=== PATIENT | female | born 1970 | race African-American/Black ===

== ENCOUNTER 2016-12-30 06:09 | Emergency (ER) | payer SELFPAY ==
[2016-12-30] MEDS ORDERED: NORFLEX INJ IM ONE (06:24)
[2016-12-30] MEDS ORDERED: TORADOL 60 MG VIAL IM ONE (06:24)
--- NOTE | 2016-12-30 06:26 | DR.GENAD ---
HPI - PCP Primary Care Physician: lenin - HPI Comment HPI Comment: AT WORK YESTERDAY. LIFTED AND LOWER BACK PAIN STATED. BACK WENT INTO SPASM. DENIES WEAKNESS BUT HAVE SEVERE PAIN. ALIVE DIID NOT HELP PAIN. - Complaint/Symptoms Chief Complaint Doctors Comments: LOWER BACK PAIN SINCE YESTERDAY. Chief Complaint:: pulled back at work - Nurses notes reviewed Nurses Notes Review: Yes - Source History Provided: Patient - Mode of Arrival Mode of Arrival: Ambulatory - Timing Onset of Chief Complaint: 12/30/16 Came on: Suddenly - Duration Duration: Constant Duration: Hours - Severity Severity: Moderate PMH - PMH Past Medical History: Yes Past Medical History: Hypertension Past Surgical History: Yes Surgical History: Hysterectomy - Family History History of Family Medical Conditions: Yes Family Medical History: Diabetes Mellitus, Cancer, Hypertension - Social History Does patient currently use any type of tobacco product: No Have you used tobacco products in the last 12 months: No Type of Tobacco Use: None Does any household member use tobacco: No Alcohol Use: None Do you use any recreational Drugs:: No Lives With: Family Lives Where: Home - infectious screening In the last 2 months have you had wt loss of >10#?: NO Have you had fever, night sweats or hemotysis?: No Have you traveled outside the country in the last 6 months?: No Isolation: Standard ROS - Review of Systems Constitutional: No Symptoms Reported Eyes: No Symptoms Reported ENTM: No Symptoms Reported Respiratoy: No Symptoms Reported Cardiovascular: No Symptoms Reported Gastrointestinal/Abdominal: No Symptoms Reported Genitourinary: No Symptoms Reported Neurological: No Symptoms Reported Musculoskeletal: Back Pain, Muscle Pain Integumentary: No Symptoms Reported Hematologic/Lymphatic: No Symptoms Reported Endocrine: No Symptoms Reported All Other Systems: Reviewed and Negative PE - Vital Signs Vitals: Temperature 98.2 F Pulse Rate 65 Respiratory Rate 18 Blood Pressure 192/110 O2 Sat by Pulse Oximetry 98 - General Limitations: No Limitations General Appearance: Alert - Head Head Exam: Normal Inspection - Eyes Eye exam: Normal Appearance - ENT ENT Exam: Normal External Ear Exam External Ear Exam: Normal External Inspection Throat Exam: Normal Inspection - Neck Neck Exam: Trachea Midline - Chest Chest Inspection: Symmetric Chest Wall Rise - Respiratory Respiratory Exam: Normal Lung Sounds Bilat Respiratory Exam: Bilateral Clear to Auscultation - Cardiovascular Cardiovascular Exam: Regular Rate, Normal Rhythm, Normal Heart Sounds - Abdominal Exam Abdominal Exam: Normal Bowel Sounds, Soft. negative: Tenderness - Extremities Extremities Exam: Normal Inspection - Back Back Exam: Paraspinal Tenderness (LOWER BACK.), Vertebral Tenderness (LOWER BACK.) - Neurologic Neurological Exam: Alert, Oriented X3 - Psychiatric Psychiatric Exam: Anxious - Skin Skin Exam: Normal Color MDM - Additional Information Additional Information Obtained From: Family - Differential Diagnosis Differential Diagnosis: LOWER BACK PAIN, STRAIN, SPRAIN, FRACTURE AND CONTUSION Course - Treatment Treatment: SEE ORDERS. - Education/Counseling Education/Counseling: Patient, Education Educated On: Treatment, Diagnosis, Needs for Follow Up ROR - XRAY XRAY Interpreted by: Radiologist XRAY Findings: REPORT DISCUSS WITH PATIENT. - Diagnosis Discharge Problem: Back muscle spasm Lumbar back pain Qualifiers: Chronicity: acute Back pain laterality: unspecified Sciatica presence: without sciatica Qualified Code(s): M54.5 - Low back pain - Discharge Plan Condition: Stable Prescriptions: Cyclobenzaprine HCl [FLEXERIL 10 MG *] 10 mg PO TID PRN #20 tab PRN Reason: Ibuprofen [MOTRIN TAB 600 MG *] 600 mg PO TID PRN #20 tab PRN Reason: Pain/Inflammation Tramadol HCl 50 mg PO TID PRN #15 tablet PRN Reason: - Follow ups/Referrals Follow ups/Referrals: SIRISHA ORTIZ [Primary Care Provider] - 2 days - Instructions Instructions: Back Pain, Adult, [id number] Additional Instructions: RETURN TO ED IF WORSE.
[2016-12-30 06:27] VITALS: BP 192/110; BMI 51.2
[2016-12-30] MEDS ORDERED: NORFLEX INJ ONE (06:29)
[2016-12-30] MEDS ORDERED: TORADOL 60 MG VIAL ONE (06:29)
[2016-12-30] MEDS ORDERED: DUONEB 0.5 MG/3 MG ONE (06:47)
--- NOTE | 2016-12-30 06:59 | RAD ---
Three views of the lumbar spine Indication: Lower back pain the after pulling injury. Findings: There is mild multilevel spondylosis of the lumbar spine with. No fracture or spondylolist hesis. No spondylolysis. SI joints are intact. There is also moderate spondylosis within the visuali zed lower thoracic spine. Impression: Mild multilevel spondylosis of the lumbar spine without acute fracture or spondylolisthe sis. Reported By:
== END 2016-12-30 08:15 | disposition home or self-care (01) ==
LOC: ER 06:09
DX: M62.830 Muscle spasm of back (principal); M54.5 Low back pain; M47.816 Spondylosis without myelopathy or radiculopathy, lumbar region; Y93.89 Activity, other specified; Y92.69 Other specified industrial and construction area as the place of occurrence of the external cause
CPT/HCPCS: 72100; 80305; 96372; 99283; J1885; J2360; J7620

== ENCOUNTER 2017-01-05 12:57 | Emergency (ER) | payer SELFPAY ==
--- NOTE | 2017-01-05 13:15 | DR.CP ---
HPI - Time Seen Time seen: 13:15 - PCP Primary Care Physician: DIANA - HPI Comment HPI Comment: PATIENT DEVELOP INTERMITTENT SUBSTERNAL SHARP CHEST PAIN GOING TO HER BACK THAT STARTED AT 10:00 AM TODAY. APIN ALSO ASSOCIATED WITH WEAKNESS AND FATIGUE. NO FEVER OR URI SYMTOMS. - Complaint Chief Complaint Doctor Comments: CHEST PAIN Chief Complaint:: PT C/O CHEST PAIN THAT STARTED AT 1000 Self Treatment fo Chief Complaint: MOTRIN , FLEXERIL - Reviewed Nurses Notes Review: Yes - Source History Provided: Patient - Mode of Arrival Mode of Arrival: Ambulatory - Timing Onset of Chief Complaint: 01/05/17 Came on: Gradually Pain: Present Now - Duration Duration: Intermittent Duration: Hours - Location Location of Chest Pain: Chest (SUBSTERNAL CHEST PAIN) Chest Pain Radiation Location: Back - Context Onset: At rest, With light exertion Cardiac Risk Factors: HTN PE Risk Factors: None History of: None Prehospital Care: None - Quality Quality: Sharp - Severity Severity: Moderate - Modifying Factors Worsens: Nothing Impoves: Nothing - Associated Signs and Symptoms Associated Signs and Symptoms: Shortness of Breath PMH - PMH Past Medical History: Yes Past Medical History: Hypertension Past Surgical History: Yes Surgical History: Hysterectomy - Family History History of Family Medical Conditions: Yes Family Medical History: Diabetes Mellitus, Cancer, Hypertension - Social History Does patient currently use any type of tobacco product: No Have you used tobacco products in the last 12 months: No Type of Tobacco Use: None Does any household member use tobacco: No Alcohol Use: None Do you use any recreational Drugs:: No Lives With: Family Lives Where: Home - infectious screening In the last 2 months have you had wt loss of >10#?: NO Have you had fever, night sweats or hemotysis?: No Have you traveled outside the country in the last 6 months?: No Isolation: Standard ROS - Review of Systems Constitutional: Weakness, Fatigue. negative: Chills, Fever, Loss of Appetite Eyes: No Symptoms Reported. negative: Eye Pain, Discharge ENTM: No Symptoms Reported. negative: Ear Pain, Nose Discharge, Nose Congestion , Throat Pain Respiratoy: Short of Breath. negative: Productive Cough, Non-Productive Cough, Wheezing, Hemoptysis Cardiovascular: Chest Pain. negative: Edema, Palpitations Gastrointestinal/Abdominal: Nausea. negative: Abdominal Pain, Constipation, Diarrhea, Vomiting Genitourinary: No Symptoms Reported. negative: Dysuria, Frequency, Hematuria Neurological: Headache, Weakness, Dizziness Musculoskeletal: Muscle Pain Integumentary: No Symptoms Reported Hematologic/Lymphatic: No Symptoms Reported Endocrine: No Symptoms Reported All Other Systems: Reviewed and Negative PE - Vitals Vitals: Temperature 98.3 F Pulse Rate 69 Respiratory Rate 20 Blood Pressure 154/92 O2 Sat by Pulse Oximetry 100 - General Limitations: No Limitations General Appearance: Alert - Head Head Exam: Normal Inspection - Eyes Eye exam: Normal Appearance - ENT ENT Exam: Normal External Ear Exam - Chest Chest Inspection: Symmetric Chest Wall Rise - Respiratory Respiratory Exam: Normal Lung Sounds Bilat Respiratory Exam: Bilateral Clear to Auscultation - Cardiovascular Cardiovascular Exam: Regular Rate, Normal Rhythm, Normal Heart Sounds Pulse: Normal, Radial, Femoral Edema: Normal - Abdominal Exam Abdominal Exam: Normal Bowel Sounds, Soft. negative: Tenderness - Extremities Extremities Exam: Normal Inspection - Back Back Exam: Normal Inspection - Neurologic Neurological Exam: Alert, Oriented X3, CN II-XII Intact, Normal Gait, Reflexes Normal. negative: Motor Sensory Deficit - Psychiatric Psychiatric Exam: Anxious - Skin Skin Exam: Normal Color MDM - Differential Diagnosis Differential Diagnosis: Chest Wall Pain, Costochondritis, Esophageal Reflux/ Spasm, Gastritis, Myocardial Infarction, Pericarditis, Pancreatitis, Pneumonia, Pneumothorax, Pulmonary Embolus Course - Treatment Treatment: SEE ODERS. - Education/Counseling Education/Counseling: Patient, Education Educated On: Diagnosis ROR - Labs Reviewed Laboratory Results Reviewed?: Yes Result Diagrams: 01/05/17 13:17 01/05/17 13:17 Laboratory: WBC 5.9 X10^3/uL (3.6-10.0) 01/05/17 13:17 RBC 4.53 X10^6/uL (3.5-5.4) 01/05/17 13:17 Hgb 12.5 g/dL (12.0-16.0) 01/05/17 13:17 Hct 38.1 % (36.0-47.0) 01/05/17 13:17 MCV 84.0 fL (80.0-100.0) 01/05/17 13:17 MCH 27.6 pg (27.0-34.0) 01/05/17 13:17 MCHC 32.9 g/dL (33.0-35.0) L 01/05/17 13:17 RDW 15.2 % (11.6-16.5) 01/05/17 13:17 Plt Count 134 X10^3/uL (150.0-450.0) L 01/05/17 13:17 MPV 9.4 fL (7.4-11.0) 01/05/17 13:17 Neut % 29.7 % (42.0-75.0) L 01/05/17 13:17 Lymph % 59.4 % (21.0-51.0) H 01/05/17 13:17 [place] % 6.2 % (0.0-13.0) 01/05/17 13:17 Eos % 3.5 % (0.9-2.9) H 01/05/17 13:17 Baso % 1.2 % (0.2-1.0) H 01/05/17 13:17 Neut # 1.8 x10^3/uL (2.2-4.8) L 01/05/17 13:17 Lymph # 3.5 X10^3/uL (1.3-2.9) H 01/05/17 13:17 [place] # 0.4 x10^3/uL (0.3-0.8) 01/05/17 13:17 Eos # 0.2 x10^3/uL (0.0-0.2) 01/05/17 13:17 Baso # 0.1 X10^3/uL (0.0-0.1) 01/05/17 13:17 Absolute Nucleated RBC 0.1 /100WBC 01/05/17 13:17 INR Target Range - 01/05/17 13:17 INR 0.97 (0.8-1.3) 01/05/17 13:17 PTT 32.9 SECONDS (22.9-36.5) 01/05/17 13:17 PTT Comment - 01/05/17 13:17 D-Dimer 343 ng/mL (0-400) 01/05/17 13:17 Sodium 137 mmol/L (136-145) 01/05/17 13:17 Corrected Sodium TNP 01/05/17 13:17 Potassium 3.9 mmol/L (3.5-5.1) 01/05/17 13:17 Chloride 101 mmol/L (98-107) 01/05/17 13:17 Carbon Dioxide 31.5 mmol/L (21-32) 01/05/17 13:17 BUN 11 mg/dL (7-18) 01/05/17 13:17 Creatinine 0.93 mg/dL (0.55-1.02) 01/05/17 13:17 Est GFR (MDRD) Af Amer > 60 (>60) 01/05/17 13:17 Est GFR (MDRD) Non-Af > 60 (>60) 01/05/17 13:17 Glucose 84 mg/dL (65-99) 01/05/17 13:17 Calcium 8.3 mg/dL (8.5-10.1) L 01/05/17 13:17 Corrected Calcium TNP 01/05/17 13:17 Magnesium 1.7 mg/dL (1.7-2.9) 01/05/17 13:17 Total Bilirubin 0.20 mg/dL (0.2-1.0) 01/05/17 13:17 AST 30 Units/L (15-37) 01/05/17 13:17 ALT 32 Units/L (12-78) 01/05/17 13:17 Alkaline Phosphatase 79 Units/L (46-116) 01/05/17 13:17 Creatine Kinase 402 Units/L (26-192) H 01/05/17 13:17 CK-MB (CK-2) 2.6 ng/mL (0-4.0) 01/05/17 13:17 CK/CKMB % Calc 0.7 % (<4) 01/05/17 13:17 Troponin I 0.11 ng/mL (0-1.5) 01/05/17 13:17 Total Protein 7.5 g/dL (6.4-8.2) 01/05/17 13:17 Albumin 3.5 g/dL (3.4-5.0) 01/05/17 13:17 Globulin 4.0 g/dL (2.5-4.5) 01/05/17 13:17 Albumin/Globulin Ratio 0.9 Ratio (1.1-2.1) L 01/05/17 13:17 H. pylori IgG Antibody Negative (NEGATIVE) 01/05/17 13:17 - XRAY XRAY Findings: REPORT DISCUSS WITH PATIENT. - EKG Rhythm: NSR (EKG NOTED) - Diagnosis Discharge Problem: Chest pain Qualifiers: Chest pain type: other chest pain Qualified Code(s): R07.89 - Other chest pain ; R07.8 - Other chest pain - Discharge Plan Condition: Stable Prescriptions: Ketorolac Tromethamine [Toradol Tab] 10 mg PO Q8H PRN #15 tab PRN Reason: Pain Ranitidine HCl [ZANTAC TAB 150 MG *] 150 mg PO BID #60 tab - Follow ups/Referrals Follow ups/Referrals: SIRISHA ORTIZ [Primary Care Provider] - 3 days - Instructions Instructions: Chest Pain Observation Additional Instructions: RETURN TO ED IF WORSE.
[2017-01-05 13:29] LABS: BASOPHILS # (AUTO) 0.1 X10^3/uL (0.0-0.1); BASOPHILS % (AUTO) 1.2 % (0.2-1.0); EOSINOPHILS # (AUTO) 0.2 x10^3/uL (0.0-0.2); EOSINOPHILS % (AUTO) 3.5 % (0.9-2.9); HEMATOCRIT 38.1 % (36.0-47.0); HEMOGLOBIN 12.5 g/dL (12.0-16.0); LYMPHOCYTES # (AUTO) 3.5 X10^3/uL (1.3-2.9); LYMPHOCYTES % (AUTO) 59.4 % (21.0-51.0); MEAN CORPUSCULAR HEMOGLOBIN 27.6 pg (27.0-34.0); MEAN CORPUSCULAR HGB CONC 32.9 g/dL (33.0-35.0); MEAN PLATELET VOLUME 9.4 fL (7.4-11.0); MONOCYTES # (AUTO) 0.4 x10^3/uL (0.3-0.8); MONOCYTES % (AUTO) 6.2 % (0.0-13.0); NEUTROPHILS # (AUTO) 1.8 x10^3/uL (2.2-4.8); NEUTROPHILS % (AUTO) 29.7 % (42.0-75.0); PLATELET COUNT 134 X10^3/uL (150.0-450.0); RED BLOOD COUNT 4.53 X10^6/uL (3.5-5.4); RED CELL DISTRIBUTION WIDTH 15.2 % (11.6-16.5); WHITE BLOOD COUNT 5.9 X10^3/uL (3.6-10.0)
--- NOTE | 2017-01-05 13:33 | RAD ---
HISTORY: Chest pain Study: AP portable chest Comparison: None Findings: The trachea is midline. The cardiac silhouette is enlarged. No congestive heart failure is noted.. The lungs are clear without focal infiltrate or effusion. The bony thorax is unremarkable. IMPRESSION: 1. Cardiomegaly without congestive heart failure 2. Lungs clear Reported By:
[2017-01-05 13:55] LABS: D DIMER 343 ng/mL (0-400)
[2017-01-05 14:09] LABS: ALANINE AMINOTRANSFERASE 32 Units/L (12-78); ALBUMIN 3.5 g/dL (3.4-5.0); ALKALINE PHOSPHATASE 79 Units/L (46-116); ASPARTATE AMINO TRANSFERASE 30 Units/L (15-37); BLOOD UREA NITROGEN 11 mg/dL (7-18); CALCIUM 8.3 mg/dL (8.5-10.1); CARBON DIOXIDE 31.5 mmol/L (21-32); CHLORIDE 101 mmol/L (98-107); CKMB % 0.7 % (<4); CREATINE KINASE 402 Units/L (26-192); CREATINE KINASE MB 2.6 ng/mL (0-4.0); CREATININE 0.93 mg/dL (0.55-1.02); GLUCOSE 84 mg/dL (65-99); MAGNESIUM 1.7 mg/dL (1.7-2.9); SODIUM 137 mmol/L (136-145); TOTAL PROTEIN 7.5 g/dL (6.4-8.2); TROPONIN I 0.11 ng/mL (0-1.5); eGFR BLACK RACES > 60 (>60); eGFR NON BLACK RACES > 60 (>60)
[2017-01-05] MEDS ORDERED: PEPCID 20 MG IV PREMIX* 20 MG/50 ML BAG IV ONE ×2 (14:10→14:32)
[2017-01-05] MEDS ORDERED: CATAPRES TAB 0.2 MG PO ONE (14:21)
[2017-01-05] MEDS ORDERED: CATAPRES TAB 0.2 MG ONE (14:32)
[2017-01-05] MEDS ORDERED: NORVASC TAB 5 MG ONE (15:36)
[2017-01-05] MEDS ORDERED: NORVASC TAB 10 MG PO ONE (15:41)
[2017-01-05] MEDS ORDERED: ATIVAN INJ 2 MG VIAL ONE (16:51)
[2017-01-05] MEDS ORDERED: ATIVAN INJ 2 MG VIAL IVP ONE (16:53)
[2017-01-05 17:41] VITALS: BP 189/88
== END 2017-01-05 17:42 | disposition home or self-care (01) ==
LOC: ER 13:11
DX: R07.89 Other chest pain (principal)
CPT/HCPCS: 36415; 71010; 80053; 82550; 82553; 83735; 84484; 85025; 85378; 85610; 85730; 86677; 93005; 93010; 96365; 96374; 96375; 99283; A4222; S0028; J2060

== ENCOUNTER 2017-09-26 15:28 | Observation (INO) | payer SELFPAY ==
[2017-09-26] MEDS ORDERED: MORPHINE SULFATE INJ 2 MG INJ IVP ONE (16:09)
[2017-09-26] MEDS ORDERED: MORPHINE SULFATE INJ 2 MG INJ ONE (16:14)
--- NOTE | 2017-09-26 16:16 | DR.GENAD ---
HPI - PCP Primary Care Physician: DIANA - Complaint/Symptoms Chief Complaint Doctors Comments: Patient is complaining of frontal headache for the pasta 11 hours getting worst after people came to the house and begin "messing with her" getting her up set. States she has had a cough with greenish sputum and vomiting with diarrhea. She denies blurred vision, neck pain, chest or abdominal pain. she denies dysuria, hematuria, melena or any recent trauma. States her pain is 9 of 10 and it is the worst headache of her life. States she is a patient of Dr. Ortiz and has two hypertensive medicines that she takes and she took them after her called EMS earlier and they told her her blood pressure was elevated. States she has been having nasal congestion and problems with her sinus but denies sore throat. Chief Complaint:: PT. STATES SHE HAS NOT FELT GOOD IN ABOUT A WEEK. PT. C/O BODY CRAMPING AND SEVERE HEADACHE. PT. STATES THIS MORNING SHE BEGAN HAVING N/V/ D. - Nurses notes reviewed Nurses Notes Review: Yes - Source History Provided: Patient - Mode of Arrival Mode of Arrival: Ambulatory - Timing Onset of Chief Complaint: 09/21/17 Came on: Gradually - Duration Duration: Constant How lon Duration: Hours - Location Location: diffuse frontal headache - Severity Severity: Severe - Modifying Factors Worsens:: nothing Improves:: nothing PMH - PMH Past Medical History: Yes Past Medical History: Hypertension Past Surgical History: Yes Surgical History: Hysterectomy - Family History History of Family Medical Conditions: Yes Family Medical History: Diabetes Mellitus, Cancer, Hypertension - Social History Does patient currently use any type of tobacco product: No Have you used tobacco products in the last 12 months: No Type of Tobacco Use: None Does any household member use tobacco: No Alcohol Use: None Do you use any recreational Drugs:: No Lives With: Spouse Lives Where: Home - infectious screening In the last 2 months have you had wt loss of >10#?: NO Have you had fever, night sweats or hemotysis?: No Have you traveled outside the country in the last 6 months?: No Isolation: Standard ROS - Review of Systems Constitutional: No Symptoms Reported. negative: See HPI, Chills, Diaphoresis, Fever, Malaise, Weakness, Irritable, Fatigue, Loss of Appetite, Other Eyes: No Symptoms Reported. negative: See HPI, Eye Pain, Blurred Vision, Tearing, Discharge, Photophobia, Diplopia, Other ENTM: No Symptoms Reported, Nose Discharge, Nose Congestion. negative: See HPI , Ear Pain, Ear Discharge, Pulling on Ears, Hearing Loss, Nose Pain, Epistaxis, Mouth Pain, Mouth Swelling, Loose Teeth, Drooling, Throat Pain, Throat Swelling , Ear Foreign Body Respiratoy: No Symptoms Reported, Productive Cough. negative: See HPI, Non- Productive Cough, Moist Cough, Dry Cough, Hacking Cough, Barking Cough, Brassy Cough, Orthopnea, Short of Breath, Stridor, Wheezing, Hemoptysis, Other Cardiovascular: No Symptoms Reported. negative: See HPI, Chest Pain, Edema, Palpitations, Syncope, Cyanosis, Skin Mottling, Other Gastrointestinal/Abdominal: No Symptoms Reported, Diarrhea, Nausea, Vomiting. negative: See HPI, Abdominal Pain, Constipation, Food Intolerance, Other Genitourinary: No Symptoms Reported. negative: See HPI, Discharge, Dysuria, Frequency, Hematuria, Pain, Bleeding, Other Neurological: No Symptoms Reported, Anxiety, Emotional Problems, Headache. negative: See HPI, Depressed, Numbness, Paresthesia, Pre-existing Deficit, Seizure, Tingling, Tremors, Weakness, Dizziness, Problems Walking, Speech Problem, Other Musculoskeletal: No Symptoms Reported Integumentary: No Symptoms Reported Hematologic/Lymphatic: No Symptoms Reported Endocrine: No Symptoms Reported Psychiatric: No Symptoms Reported. negative: See HPI, Anxiety, Depression, Hallucinations, Excessive crying, Suicidal, Other PE - Vital Signs Vitals: Temperature 100.6 F Pulse Rate 98 Respiratory Rate 22 Blood Pressure [Left Arm] 189/88 Blood Pressure 148/88 O2 Sat by Pulse Oximetry 96 - General Limitations: No Limitations General Appearance: Alert, In Distress (moderate), Obese - Head Head Exam: Normal Inspection, Atraumatic, Normocephalic - Eyes Eye exam: Normal Appearance, PERRL, EOMI. negative: Scleral Icterus, Conjunctival Injection, Nystagmus, Miosis, Mydrasis, Periorbital Swelling, Periorbital Tenderness, Other - ENT ENT Exam: Normal Exam, Normal Oropharynx, Normal External Ear Exam, Mucous Membranes Moist, TM's Normal Bilaterally External Ear Exam: Normal External Inspection TM/Canal Exam: Bilateral Normal Nose Exam: Normal Nose Exam (nasal congestion, edematous mucosal). negative: Sinus Tenderness, Nasal Deviation, Crepitus, Septal Hematoma, Laceration, Abrasion, Other Mouth Exam: Normal Inspection Throat Exam: Normal Inspection. negative: Tonsillar Erythema, Tonsillomegaly, Tonsillar Exudate, R Peritonsillar Mass, L Peritonsillar Mass, Muffled Voice, Other - Neck Neck Exam: Normal Inspection, Full ROM, Trachea Midline. negative: Tenderness, Meningismus, Lymphadenopathy, Thyromegaly, Other - Chest Chest Inspection: Normal Inspection, Symmetric Chest Wall Rise - Respiratory Respiratory Exam: Normal Lung Sounds Bilat Respiratory Exam: Bilateral Clear to Auscultation - Cardiovascular Cardiovascular Exam: Regular Rate, Normal Rhythm, Normal Heart Sounds - Abdominal Exam Abdominal Exam: Normal Inspection, Normal Bowel Sounds, Soft Abdominal Tenderness: negative: RUQ, RLQ, LUQ, LLQ, Epigastrium, Suprapubic, Diffuse, Mild, Moderate, Severe, Other - Extremities Extremities Exam: Normal Inspection, Full ROM, Normal Capillary Refill. negative: Tenderness, Edema, Joint Swelling, Calf Tenderness, Other - Back Back Exam: Normal Inspection, Full ROM - Neurologic Neurological Exam: Alert, Oriented X3, CN II-XII Intact, Reflexes Normal. negative: Normal Gait (gait not tested) - Psychiatric Psychiatric Exam: Normal Affect, Normal Mood, Agitated, Anxious. negative: Depressed, Flat Affect, Manic, Homicidal Ideation, Suicidal Ideation, Other - Skin Skin Exam: Warm, Dry, Intact, Normal Color Course - Reevaluation 1st: Improved - Consultation Called: 18:08 Call Returned: 18:08 (Dr. Gonzalez to admit) - Education/Counseling Education/Counseling: Patient, Family Educated On: Treatment, Diagnosis, Needs for Follow Up ROR - Labs Reviewed Laboratory Results Reviewed?: Yes (All labs and x-ray results reviewed and discussed with patient and spouse) Result Diagrams: 09/26/17 16:25 09/26/17 16:25 Laboratory: WBC 10.5 X10^3/uL (3.6-10.0) H 09/26/17 16:25 RBC 4.33 X10^6/uL (3.5-5.4) 09/26/17 16:25 Hgb 12.1 g/dL (12.0-16.0) 09/26/17 16:25 Hct 36.0 % (36.0-47.0) 09/26/17 16:25 MCV 83.1 fL (80.0-100.0) 09/26/17 16:25 MCH 27.8 pg (27.0-34.0) 09/26/17 16:25 MCHC 33.5 g/dL (33.0-35.0) 09/26/17 16:25 RDW 15.7 % (11.6-16.5) 09/26/17 16:25 Plt Count 122 X10^3/uL (150.0-450.0) L 09/26/17 16:25 MPV 9.2 fL (7.4-11.0) 09/26/17 16:25 Neut % (Auto) 76.3 % (42.0-75.0) H 09/26/17 16:25 Lymph % (Auto) 17.8 % (21.0-51.0) L 09/26/17 16:25 [place] % (Auto) 5.2 % (0.0-13.0) 09/26/17 16:25 Eos % (Auto) 0.0 % (0.9-2.9) L 09/26/17 16:25 Baso % (Auto) 0.7 % (0.2-1.0) 09/26/17 16:25 Neut # (Auto) 8.0 x10^3/uL (2.2-4.8) H 09/26/17 16:25 Lymph # (Auto) 1.9 X10^3/uL (1.3-2.9) 09/26/17 16:25 [place] # (Auto) 0.5 x10^3/uL (0.3-0.8) 09/26/17 16:25 Eos # (Auto) 0.0 x10^3/uL (0.0-0.2) 09/26/17 16:25 Baso # (Auto) 0.1 X10^3/uL (0.0-0.1) 09/26/17 16:25 Absolute Nucleated RBC 0.0 /100WBC 09/26/17 16:25 INR Target Range - 09/26/17 16:25 INR 1.03 (0.8-1.3) 09/26/17 16:25 APTT 30.2 SECONDS (22.9-36.5) 09/26/17 16:25 PTT Comment - 09/26/17 16:25 Sodium 137 mmol/L (136-145) 09/26/17 16:25 Corrected Sodium TNP 09/26/17 16:25 Potassium 3.4 mmol/L (3.5-5.1) L 09/26/17 16:25 Chloride 101 mmol/L (98-107) 09/26/17 16:25 Carbon Dioxide 28.0 mmol/L (21-32) 09/26/17 16:25 BUN 11 mg/dL (7-18) 09/26/17 16:25 Creatinine 0.96 mg/dL (0.55-1.02) 09/26/17 16:25 Est GFR (MDRD) Af Amer > 60 (>60) 09/26/17 16:25 Est GFR (MDRD) Non-Af > 60 (>60) 09/26/17 16:25 Glucose 106 mg/dL (65-99) H 09/26/17 16:25 Lactic Acid 0.9 mmol/L (0.4-2.0) 09/26/17 16:25 Calcium 8.5 mg/dL (8.5-10.1) 09/26/17 16:25 Corrected Calcium TNP 09/26/17 16:25 Magnesium 1.7 mg/dL (1.7-2.9) 09/26/17 16:25 Total Bilirubin 0.30 mg/dL (0.2-1.0) 09/26/17 16:25 AST 21 Units/L (15-37) 09/26/17 16:25 ALT 20 Units/L (12-78) 09/26/17 16:25 Alkaline Phosphatase 88 Units/L (46-116) 09/26/17 16:25 Creatine Kinase 564 Units/L (26-192) H 09/26/17 16:25 CK-MB (CK-2) < 1.0 ng/mL (0-4.0) 09/26/17 16:25 CK/CKMB % Calc 0.2 % (<4) 09/26/17 16:25 Troponin I 0.19 ng/mL (0-1.5) 09/26/17 16:25 C-Reactive Protein 55.00 mg/L (0-3.0) H 09/26/17 16:25 Total Protein 7.9 g/dL (6.4-8.2) 09/26/17 16:25 Albumin 3.5 g/dL (3.4-5.0) 09/26/17 16:25 Globulin 4.4 g/dL (2.5-4.5) 09/26/17 16:25 Albumin/Globulin Ratio 0.8 Ratio (1.1-2.1) L 09/26/17 16:25 - XRAY XRAY Interpreted by: Radiologist (CT head: No acute intracranial process can be identified) XRAY Findings: CXR: No significant change or acute findings - EKG Rate: 93 [place]: Normal Rhythm: NSR Block: None ST: Nonsp - Diagnosis Discharge Problem: Persistent headaches, Abnormal cardiac enzyme level Altered mental status Qualifiers: Altered mental status type: delirium Qualified Code(s): R41.0 - Disorientation , unspecified Sinusitis, acute Qualifiers: Sinusitis location: maxillary Rhabdomyolysis Qualifiers: Rhabdomyolysis type: non-traumatic Qualified Code(s): M62.82 - Rhabdomyolysis - Discharge Plan Disposition: ADMITTED INPATIENT Condition: Stable - Follow ups/Referrals Follow ups/Referrals: SIRISHA ORTIZ [Primary Care Provider] - 3 days - Instructions
[2017-09-26] MEDS: NS 1000 ML 1,000 ML IV SCH (16:20)
[2017-09-26 16:36] LABS: BASOPHILS # (AUTO) 0.1 X10^3/uL (0.0-0.1); BASOPHILS % (AUTO) 0.7 % (0.2-1.0); HEMOGLOBIN 12.1 g/dL (12.0-16.0); LYMPHOCYTES # (AUTO) 1.9 X10^3/uL (1.3-2.9); LYMPHOCYTES % (AUTO) 17.8 % (21.0-51.0); MEAN CORPUSCULAR HEMOGLOBIN 27.8 pg (27.0-34.0); MEAN CORPUSCULAR HGB CONC 33.5 g/dL (33.0-35.0); MEAN CORPUSCULAR VOLUME 83.1 fL (80.0-100.0); MEAN PLATELET VOLUME 9.2 fL (7.4-11.0); MONOCYTES # (AUTO) 0.5 x10^3/uL (0.3-0.8); MONOCYTES % (AUTO) 5.2 % (0.0-13.0); NEUTROPHILS % (AUTO) 76.3 % (42.0-75.0); PLATELET COUNT 122 X10^3/uL (150.0-450.0); RED BLOOD COUNT 4.33 X10^6/uL (3.5-5.4); RED CELL DISTRIBUTION WIDTH 15.7 % (11.6-16.5); WHITE BLOOD COUNT 10.5 X10^3/uL (3.6-10.0)
--- NOTE | 2017-09-26 16:48 | CT ---
HISTORY: Headache Study: CT brain without contrast Comparison: None Technique: Multiple axial images of the brain were obtained from the skull base to the vertex without administra tion of IV contrast. Findings: No acute intraparenchymal hemorrhage or mass can be identified. No extra-axial fluid collections are seen. No alteration in the attenuation of the brain parenchyma can be identified to suggest acute o r subacute ischemic change. The ventricular system is symmetric and nondilated. The extracranial st ructures are grossly unremarkable. IMPRESSION: 1. No acute intracranial process can be identified. Reported By:
[2017-09-26 16:51] LABS: LACTIC ACID 0.9 mmol/L (0.4-2.0)
[2017-09-26 16:57] LABS: ALANINE AMINOTRANSFERASE 20 Units/L (12-78); ALBUMIN 3.5 g/dL (3.4-5.0); ALKALINE PHOSPHATASE 88 Units/L (46-116); ASPARTATE AMINO TRANSFERASE 21 Units/L (15-37); BLOOD UREA NITROGEN 11 mg/dL (7-18); CALCIUM 8.5 mg/dL (8.5-10.1); CHLORIDE 101 mmol/L (98-107); CREATINE KINASE 564 Units/L (26-192); CREATINE KINASE MB < 1.0 ng/mL (0-4.0); CREATININE 0.96 mg/dL (0.55-1.02); MAGNESIUM 1.7 mg/dL (1.7-2.9); SODIUM 137 mmol/L (136-145); TOTAL PROTEIN 7.9 g/dL (6.4-8.2); TROPONIN I 0.19 ng/mL (0-1.5); eGFR BLACK RACES > 60 (>60); eGFR NON BLACK RACES > 60 (>60)
[2017-09-26 16:59] LABS: CKMB % 0.2 % (<4)
[2017-09-26] MEDS ORDERED: ROCEPHIN IV ONE (17:13)
[2017-09-26] MEDS ORDERED: SPIKE MINIBAG IV ONE (17:13)
[2017-09-26] MEDS ORDERED: NS IV ONE (17:13)
--- NOTE | 2017-09-26 17:13 | RAD ---
Examination: AP chest History: Body cramping with headache Comparison reference 01/05/2017 Findings: Continued normal heart size with no evidence for acute pulmonary, pleural or hilar lesion. Impression: No significant change or acute findings. Reported By:
[2017-09-26] MEDS ORDERED: TORADOL 30 MG VIAL IVP STA (17:14)
[2017-09-26] MEDS ORDERED: BENADRYL INJ 50 MG VIAL IVP STA (17:14)
[2017-09-26] MEDS ORDERED: NS 100 ML IV + SPIKE MINIBAG* 100 ML IV ONE (17:22)
[2017-09-26] MEDS ORDERED: ROCEPHIN VIAL 2 GM ONE (17:22)
[2017-09-26] MEDS ORDERED: BENADRYL INJ 50 MG VIAL ONE (17:22)
[2017-09-26] MEDS ORDERED: TORADOL 30 MG VIAL ONE (17:22)
[2017-09-26] MEDS ORDERED: ZOFRAN INJ 4 MG VIAL IVP PRN (18:16)
[2017-09-26 18:53] LABS: CKMB % 0.2 % (<4); CREATINE KINASE MB 1.3 ng/mL (0-4.0); TROPONIN I 0.18 ng/mL (0-1.5)
[2017-09-27] MEDS: TYLENOL 325 MG TAB PO PRN ×3 (00:20→21:17)
[2017-09-27 01:10] LABS: BILIRUBIN,URINE NEGATIVE (NEGATIVE); BLOOD/HEMOGLOBIN,URINE 3+ (NEGATIVE); GLUCOSE, URINE NEGATIVE (NEGATIVE); KETONES,URINE 1+ (NEGATIVE); LEUKOCYTE ESTERASE ,URINE NEGATIVE (NEGATIVE); NITRITES,URINE NEGATIVE (NEGATIVE); PROTEIN,URINE 2+ (NEGATIVE); UROBILINOGEN,URINE NORMAL (NORMAL)
[2017-09-27 01:28] LABS: APPEARANCE,URINE CLEAR (CLEAR); COLOR,URINE DARK YELLOW (YELLOW)
[2017-09-27 01:29] LABS: BACTERIA,URINE NEGATIVE /HPF (NEGATIVE); RBC,URINE 0-2 /HPF (NONE SEEN); SQUAMOUS EPITHELIAL CELL,UR FEW /HPF (NEGATIVE)
[2017-09-27 01:36] LABS: CKMB % 0.1 % (<4); CREATINE KINASE 703 Units/L (26-192); CREATINE KINASE MB < 1.0 ng/mL (0-4.0); TROPONIN I 0.21 ng/mL (0-1.5)
[2017-09-27 05:13] LABS: BASOPHILS % (AUTO) 0.4 % (0.2-1.0); HEMATOCRIT 35.7 % (36.0-47.0); HEMOGLOBIN 11.8 g/dL (12.0-16.0); LYMPHOCYTES # (AUTO) 1.9 X10^3/uL (1.3-2.9); LYMPHOCYTES % (AUTO) 24.3 % (21.0-51.0); MEAN CORPUSCULAR HEMOGLOBIN 27.8 pg (27.0-34.0); MEAN CORPUSCULAR HGB CONC 33.2 g/dL (33.0-35.0); MEAN CORPUSCULAR VOLUME 83.9 fL (80.0-100.0); MEAN PLATELET VOLUME 9.6 fL (7.4-11.0); MONOCYTES # (AUTO) 0.5 x10^3/uL (0.3-0.8); MONOCYTES % (AUTO) 6.5 % (0.0-13.0); NEUTROPHILS # (AUTO) 5.5 x10^3/uL (2.2-4.8); NEUTROPHILS % (AUTO) 68.8 % (42.0-75.0); PLATELET COUNT 114 X10^3/uL (150.0-450.0); RED BLOOD COUNT 4.25 X10^6/uL (3.5-5.4); RED CELL DISTRIBUTION WIDTH 15.6 % (11.6-16.5)
[2017-09-27 05:21] LABS: ALANINE AMINOTRANSFERASE 26 Units/L (12-78); ALBUMIN 3.2 g/dL (3.4-5.0); ALKALINE PHOSPHATASE 81 Units/L (46-116); ASPARTATE AMINO TRANSFERASE 26 Units/L (15-37); BLOOD UREA NITROGEN 11 mg/dL (7-18); CALCIUM 7.7 mg/dL (8.5-10.1); CARBON DIOXIDE 29.2 mmol/L (21-32); CHLORIDE 101 mmol/L (98-107); COR CA(FOR HYPOALB) 8.3 mg/dL (8.5-10.1); CREATININE 0.95 mg/dL (0.55-1.02); SODIUM 135 mmol/L (136-145); TOTAL PROTEIN 7.5 g/dL (6.4-8.2); eGFR BLACK RACES > 60 (>60); eGFR NON BLACK RACES > 60 (>60)
[2017-09-27 05:29] LABS: CKMB % 0.1 % (<4); CREATINE KINASE MB 1.1 ng/mL (0-4.0); TROPONIN I 0.21 ng/mL (0-1.5)
[2017-09-27] MEDS ORDERED: K-RIDER 10 MEQ/NS 100 ML 10 MEQ/100 ML BAG IV PRN (06:01)
[2017-09-27] MEDS ORDERED: POTASSIUM CHL 40 MEQ/NS 0.45% 500 ML IV PRN (06:01)
[2017-09-27] MEDS ORDERED: POTASSIUM CHL 60 MEQ/NS 0.45% 500 ML IV PRN (06:01)
[2017-09-27] MEDS ORDERED: K-LYTE EFFERVESCENT PO PRN (06:01)
[2017-09-27] MEDS ORDERED: POTASSIUM CHLORIDE LIQ 20 MEQ UDC PO PRN (06:01)
[2017-09-27] MEDS ORDERED: MAGNESIUM SULFATE 1 GM/100 mL PREMIX 1 GM/100 ML BAG IV PRN (06:01)
[2017-09-27] MEDS: TORADOL 30 MG VIAL IVP PRN (06:27)
[2017-09-27 07:39] VITALS: BMI 51.1
[2017-09-27] MEDS: NS 1000 ML 1,000 ML IV SCH (07:39)
[2017-09-27] MEDS: SPIKE MINIBAG IV SCH (09:40)
[2017-09-27] MEDS: NS IV SCH (09:40)
[2017-09-27] MEDS: ROCEPHIN IV SCH (09:40)
[2017-09-27 15:12] LABS: ABG ALLEN TEST POS; ABG BASE EXCESS 4.7 mmol/L (-2.0-2.0); ABG HCO3 29.2 mmol/L (22-26)
[2017-09-27] MEDS: DUONEB 0.5 MG/3 MG NEB SCH ×2 (16:27→21:03)
[2017-09-27] MEDS: ROBITUSSIN DM PO PRN ×2 (16:41→21:16)
[2017-09-28] MEDS: DUONEB 0.5 MG/3 MG NEB SCH ×6 (01:19→20:37)
[2017-09-28] MEDS: NS 1000 ML 1,000 ML IV SCH ×3 (03:58→18:49)
[2017-09-28 05:18] LABS: BASOPHILS % (AUTO) 0.5 % (0.2-1.0); EOSINOPHILS # (AUTO) 0.1 x10^3/uL (0.0-0.2); EOSINOPHILS % (AUTO) 1.1 % (0.9-2.9); HEMATOCRIT 35.2 % (36.0-47.0); HEMOGLOBIN 11.7 g/dL (12.0-16.0); LYMPHOCYTES # (AUTO) 2.8 X10^3/uL (1.3-2.9); LYMPHOCYTES % (AUTO) 52.6 % (21.0-51.0); MEAN CORPUSCULAR HEMOGLOBIN 28.1 pg (27.0-34.0); MEAN CORPUSCULAR HGB CONC 33.1 g/dL (33.0-35.0); MEAN CORPUSCULAR VOLUME 84.8 fL (80.0-100.0); MEAN PLATELET VOLUME 9.4 fL (7.4-11.0); MONOCYTES # (AUTO) 0.5 x10^3/uL (0.3-0.8); MONOCYTES % (AUTO) 10.1 % (0.0-13.0); NEUTROPHILS # (AUTO) 1.9 x10^3/uL (2.2-4.8); NEUTROPHILS % (AUTO) 35.7 % (42.0-75.0); PLATELET COUNT 115 X10^3/uL (150.0-450.0); RED BLOOD COUNT 4.15 X10^6/uL (3.5-5.4); RED CELL DISTRIBUTION WIDTH 15.7 % (11.6-16.5); WHITE BLOOD COUNT 5.4 X10^3/uL (3.6-10.0)
[2017-09-28 05:26] LABS: ALANINE AMINOTRANSFERASE 30 Units/L (12-78); ALKALINE PHOSPHATASE 78 Units/L (46-116); ASPARTATE AMINO TRANSFERASE 33 Units/L (15-37); BLOOD UREA NITROGEN 10 mg/dL (7-18); CALCIUM 7.5 mg/dL (8.5-10.1); CARBON DIOXIDE 29.5 mmol/L (21-32); CHLORIDE 102 mmol/L (98-107); COR CA(FOR HYPOALB) 8.3 mg/dL (8.5-10.1); COR NA(FOR HYPERGLY) 140 mmol/L (136-145); CREATININE 0.89 mg/dL (0.55-1.02); SODIUM 139 mmol/L (136-145); TOTAL PROTEIN 7.3 g/dL (6.4-8.2); eGFR BLACK RACES > 60 (>60); eGFR NON BLACK RACES > 60 (>60)
[2017-09-28] MEDS: SPIKE MINIBAG IV SCH (08:40)
[2017-09-28] MEDS: ROCEPHIN IV SCH (08:40)
[2017-09-28] MEDS: NS IV SCH (08:40)
--- NOTE | 2017-09-28 08:47 | DR.H&P ---
H&P - History & Physical for Day of: H&P Date: 09/26/17 - Chief Complaint Chief Complaint: DUMONT, N/V/D, FEVER - Allergies Allergies/Adverse Reactions: Allergies Allergy/AdvReac Type Severity Reaction Status Date / Time No Known Drug Allergies Allergy Verified 09/26/17 15:33 - History of Present Illness History of Present Illness: ER ADMISSION AFTER PRESENTING WITH CO-of frontal headache for the past 11 hours getting worst after people came to the house and begin "messing with her" getting her up set. States she has had a cough with greenish sputum and vomiting with diarrhea. She denies blurred vision, neck pain, chest or abdominal pain. she denies dysuria, hematuria, melena or any recent trauma. States her pain is 9 of 10 and it is the worst headache of her life. States she is a patient of Dr. Finch and has two hypertensive medicines that she takes and she took them after her called EMS earlier and they told her her blood pressure was elevated. States she has been having nasal congestion and problems with her sinus but denies sore throat. Pt has PMH of HTN. pt admitted for treatment of acute illness, BP control and serial CE's. - Past Medical History Past Medical History: Hypertension - Past Surgical History Surgical History: Hysterectomy, Other - Family History Family Medical History: Diabetes Mellitus, Cancer, Hypertension - Social History Does patient currently use any type of tobacco product: No Have you used tobacco products in the last 12 months: No Type of Tobacco Use: None Does any household member use tobacco: No Alcohol Use: None Drug Use: None - Medications Home Medications: Amlodipine Besylate [NORVASC 5 MG *] 5 mg PO DAILY 09/26/17 [History Confirmed 09/26/17] Losartan Potassium [Cozaar] 100 mg PO DAILY 09/26/17 [History Confirmed 09/26/17 ] Meloxicam [Meloxicam] 15 mg PO DAILY 09/26/17 [History Confirmed 09/26/17] - Review of Systems Constitutional: Fever, Chills, Weakness, Malaise Eyes: No Symptoms Reported ENT: Nose Discharge, Nose Congestion, Throat Pain Respiratory: Cough, Shortness of Breath, SOB with Excertion, Sputum, Wheezing Cardiovascular: Edema Gastrointestinal: Nausea, Vomiting, Diarrhea Genitourinary: No Symptoms Reported Musculoskeletal: No Symptoms Reported Skin: No Symptoms Reported Neurological: No Symptoms Reported - Physical Exam Vital Signs: Temperature 98.7 F Pulse Rate [Left Radial] 71 Pulse Rate 74 Respiratory Rate 20 Blood Pressure [Left Arm] 134/70 Blood Pressure 148/88 O2 Sat by Pulse Oximetry 95 Oriented: Normal Eyes: Normal Ear: Normal Throat: Red, Dry Respiratory: Rhonchi Throughout (central rhonchi), Wheezes Throughout Cardiovascular: Normal, Edema (+1 edema to bilateral lower extremities) : Normal Auscultation: Bowel Sounds: Normal Palpation: Normal Tenderness: Epigastric Skin: Normal Musculoskeletal: Normal Psychiatric: Anxiety Affect: Anxious Speech Pattern: Clear, Appropriate - Assessment/Plan (1) Abnormal cardiac enzyme level Status: Acute Plan: ADMIT, SERIAL EKG'S CE, IV HYDRATION. RESP CONSULT, ABG, SUPPLEMENTAL O2 JET NEBS. IV ATBX, BP CONTROL. VERIFY HOME MEDS. CT HEAD AND CXR ON ADMISSION. SPUTUM CULTURES, ENCOURAGE ORAL HYDRATION, PAIN CONTROL (2) Rhabdomyolysis Qualifiers: Rhabdomyolysis type: non-traumatic Qualified Code(s): M62.82 - Rhabdomyolysis Status: Acute (3) Asthmatic bronchitis Status: Acute
[2017-09-28] MEDS ORDERED: REFLEX: PROVENTIL NEB & PulmiCORT NEB~ NEB SCH (09:30)
[2017-09-28] MEDS: FLONASE NASAL SPRAY ENOSTRIL SCH (10:27)
[2017-09-28] MEDS: PULMICORT NEB TX 0.5 MG NEB SCH ×2 (13:36→20:37)
[2017-09-28] MEDS: ROBITUSSIN DM PO PRN (20:34)
[2017-09-29] MEDS: DUONEB 0.5 MG/3 MG NEB SCH ×6 (00:20→21:44)
[2017-09-29] MEDS: ROBITUSSIN DM PO PRN (03:43)
[2017-09-29 06:35] LABS: BASOPHILS % (AUTO) 0.6 % (0.2-1.0); EOSINOPHILS # (AUTO) 0.1 x10^3/uL (0.0-0.2); EOSINOPHILS % (AUTO) 2.4 % (0.9-2.9); HEMATOCRIT 33.3 % (36.0-47.0); HEMOGLOBIN 11.1 g/dL (12.0-16.0); LYMPHOCYTES # (AUTO) 2.9 X10^3/uL (1.3-2.9); LYMPHOCYTES % (AUTO) 56.6 % (21.0-51.0); MEAN CORPUSCULAR HGB CONC 33.5 g/dL (33.0-35.0); MEAN CORPUSCULAR VOLUME 83.7 fL (80.0-100.0); MEAN PLATELET VOLUME 9.5 fL (7.4-11.0); MONOCYTES # (AUTO) 0.4 x10^3/uL (0.3-0.8); MONOCYTES % (AUTO) 8.1 % (0.0-13.0); NEUTROPHILS # (AUTO) 1.6 x10^3/uL (2.2-4.8); NEUTROPHILS % (AUTO) 32.3 % (42.0-75.0); PLATELET COUNT 125 X10^3/uL (150.0-450.0); RED BLOOD COUNT 3.98 X10^6/uL (3.5-5.4); RED CELL DISTRIBUTION WIDTH 15.4 % (11.6-16.5); WHITE BLOOD COUNT 5.1 X10^3/uL (3.6-10.0)
[2017-09-29 06:50] LABS: ALANINE AMINOTRANSFERASE 33 Units/L (12-78); ALBUMIN 2.9 g/dL (3.4-5.0); ALKALINE PHOSPHATASE 71 Units/L (46-116); ASPARTATE AMINO TRANSFERASE 30 Units/L (15-37); BLOOD UREA NITROGEN 9 mg/dL (7-18); CALCIUM 7.5 mg/dL (8.5-10.1); CARBON DIOXIDE 27.6 mmol/L (21-32); CHLORIDE 104 mmol/L (98-107); COR CA(FOR HYPOALB) 8.4 mg/dL (8.5-10.1); COR NA(FOR HYPERGLY) 140 mmol/L (136-145); CREATININE 0.78 mg/dL (0.55-1.02); SODIUM 139 mmol/L (136-145); TOTAL PROTEIN 7.1 g/dL (6.4-8.2); eGFR BLACK RACES > 60 (>60); eGFR NON BLACK RACES > 60 (>60)
[2017-09-29] MEDS: NS IV SCH (08:04)
[2017-09-29] MEDS: SPIKE MINIBAG IV SCH (08:04)
[2017-09-29] MEDS: NS 1000 ML 1,000 ML IV SCH ×3 (08:04→17:29)
[2017-09-29] MEDS: ROCEPHIN IV SCH (08:04)
[2017-09-29] MEDS: FLONASE NASAL SPRAY ENOSTRIL SCH (08:05)
[2017-09-29] MEDS: PULMICORT NEB TX 0.5 MG NEB SCH ×2 (09:05→21:44)
[2017-09-29] MEDS: SINGULAIR TAB 10 MG PO SCH ×2 (11:57→20:26)
[2017-09-29] MEDS: MUCOMYST 20% 200 MG/ML NEB SCH (21:44)
[2017-09-30] MEDS: DUONEB 0.5 MG/3 MG NEB SCH ×3 (00:05→08:40)
[2017-09-30] MEDS: TORADOL 30 MG VIAL IVP PRN (05:00)
[2017-09-30] MEDS: FLONASE NASAL SPRAY ENOSTRIL SCH (08:35)
[2017-09-30] MEDS: NS IV SCH (08:35)
[2017-09-30] MEDS: SPIKE MINIBAG IV SCH (08:35)
[2017-09-30] MEDS: ROCEPHIN IV SCH (08:35)
[2017-09-30] MEDS: MUCOMYST 20% 200 MG/ML NEB SCH (08:40)
[2017-09-30] MEDS: PULMICORT NEB TX 0.5 MG NEB SCH (08:40)
[2017-09-30 09:34] VITALS: BP 153/83
[2017-09-30] MEDS ORDERED: GLUCOPHAGE XR PO SCH (10:00)
== END 2017-09-30 14:10 | disposition home or self-care (01) ==
LOC: ER 15:41 → MED/SURG 18:11
PROVIDERS: ADMIT Internal Medicine; ATTEND Obstetrics & Gynecology Obstetrics
DX: R41.82 Altered mental status, unspecified (principal); E11.9 Type 2 diabetes mellitus without complications; J45.901 Unspecified asthma with (acute) exacerbation; I10 Essential (primary) hypertension; R09.02 Hypoxemia; R44.0 Auditory hallucinations; R51 Headache; J32.9 Chronic sinusitis, unspecified; M62.82 Rhabdomyolysis; J01.80 Other acute sinusitis; R94.31 Abnormal electrocardiogram [ECG] [EKG]; R74.8 Abnormal levels of other serum enzymes
CPT/HCPCS: 36415; 36600; 70450; 71045; 80053; 80061; 81001; 82550; 82553; 82803; 83605; 83735; 84132; 84484; 85025; 85610; 85730; 86140; 87040; 87070; 87205; 93005; 93010; 94640; 94669; 94760; 96365; 96367; 96374; 96375; 99218; 99284; 99285; A4216; A4222; G0378; J0696; J1200; J1885; J2270; J7608; J7620; J7626

== ENCOUNTER 2019-05-21 21:09 | Inpatient (IN) ==
--- NOTE | 2019-05-21 22:03 | DR.URIAD ---
HPI - Time Seen Time seen: 22:03 - PCP Primary Care Physician: SIRISHA ORTIZ - Complaint Chief Complaint Doctors Comments: Patient states she has been having a cold, cough, nasal congestion fever, chills, weakness for the past two days getting pr ogressively worst with her not being able to keep anything down today. States she is a diabetic but has not taken her medicines or checked her glucose in two days because she has been feeling so weak and tired. She is complaning of fronta headache with the pain 8 of 10 but this is not the worst headache of her life. Chief Complaint:: BODY ACHES, CHILLS, FEVER SINCE THURSDAY - Reviewed Nurses Notes Reviewed: Yes - Source History Provided: Patient - Mode of Arrival Mode of Arrival: Stretcher - Timing Onset of Chief Complaint: 05/19/19 - Context Recent Treated Infections: None History of Respiratory: Suspected Exposure to Flu - Quality Quality of Cough: Productive, Green Rhinorrhea: Purulent Shortness of Breath: Moderate - Associated Signs and Symptoms Other Signs and Symptoms: Chills, Cough, Decreased Oral Intake, Decreased Urination, Fever, Nasal Symptoms, Sore Throat PMH - PMH Past Medical History: No Past Medical History: Hypertension, Diabetes Past Surgical History: No Surgical History: Hysterectomy, Other - Family History History of Family Medical Conditions: No Family Medical History: Diabetes Mellitus, Cancer, Hypertension - Social History Alcohol Use: None Do you use any recreational Drugs:: No Lives Where: Home - infectious screening In the last 2 months have you had wt loss of >10#?: NO Have you had fever, night sweats or hemotysis?: No Have you traveled outside the country in the last 6 months?: No Isolation: Standard ROS - Review of Systems Constitutional: No Symptoms Reported, Fever, Weakness, Loss of Appetite Eyes: No Symptoms Reported ENTM: No Symptoms Reported, Nose Discharge, Nose Congestion. negative: See HPI, Ear Pain, Ear Discharge, Pulling on Ears, Hearing Loss, Nose Pain, Epistaxis, Mouth Pain, Mouth Swelling, Loose Teeth, Drooling, Throat Pain, Throat Swelling, Ear Foreign Body, Tooth/Dental Pain Respiratoy: Productive Cough. negative: No Symptoms Reported, See HPI, Non- Productive Cough, Moist Cough, Dry Cough, Hacking Cough, Barking Cough, Brassy Cough, Orthopnea, Short of Breath, Stridor, Wheezing, Hemoptysis, Other Cardiovascular: No Symptoms Reported. negative: See HPI, Chest Pain, Edema, Palpitations, Syncope, Cyanosis, Skin Mottling, Other Gastrointestinal/Abdominal: No Symptoms Reported, Nausea. negative: See HPI, Abdominal Pain, Constipation, Diarrhea, Vomiting, Food Intolerance, Other Genitourinary: No Symptoms Reported. negative: See HPI, Discharge, Dysuria, Frequency, Hematuria, Pain, Bleeding, Other Neurological: No Symptoms Reported Musculoskeletal: No Symptoms Reported Integumentary: No Symptoms Reported Hematologic/Lymphatic: No Symptoms Reported. negative: See HPI, Anemia, Blood Clots, Easy Bleeding, Easy Bruising, Swollen Glands, Lymphadenopathy, Other Endocrine: No Symptoms Reported Psychiatric: No Symptoms Reported. negative: See HPI, Anxiety, Depression, Hallucinations, Excessive crying, Suicidal, Other PE - General Limitations: No Limitations General Appearance: Alert, In Distress (slight) - Head Head Exam: Normal Inspection, Atraumatic, Normocephalic - Eyes Eye exam: Normal Appearance, PERRL, EOMI. negative: Scleral Icterus, Conjunctival Injection, Nystagmus, Miosis, Mydrasis, Periorbital Swelling, Periorbital Tenderness, Other - ENT ENT Exam: Normal Exam, Normal Oropharynx, Normal External Ear Exam, Mucous Membranes Moist, TM's Normal Bilaterally External Ear Exam: Normal External Inspection TM/Canal Exam: Bilateral Normal Nose Exam: Normal Nose Exam Nasal Speculum Exam: Bilateral Purulent Discharge Mouth Exam: Normal Inspection. negative: Drooling, Trismus, Lip Swelling, Tongue Elevation, Tongue Swelling, Laceration, Other Throat Exam: Normal Inspection. negative: Tonsillar Erythema, Tonsillomegaly, Tonsillar Exudate, R Peritonsillar Mass, L Peritonsillar Mass, Muffled Voice, Other - Neck Neck Exam: Normal Inspection, Full ROM, Trachea Midline. negative: Tenderness, Meningismus, Lymphadenopathy, Thyromegaly, Other - Chest Chest Inspection: Normal Inspection, Symmetric Chest Wall Rise. negative: Tenderness, Rash, Abscess, Other - Respiratory Respiratory Exam: Normal Lung Sounds Bilat Respiratory Exam: Bilateral Clear to Auscultation - Cardiovascular Cardiovascular Exam: Regular Rate, Normal Rhythm, Normal Heart Sounds. negative: Bradycardia, Tachycardia, Irregular Rhythm, Systolic Murmur, Diastolic Murmur, Rubs, Gallop, Clicks, JVD, +S1, +S2, +S3, +S4, Other - Abdominal Exam Abdominal Exam: Normal Inspection, Normal Bowel Sounds, Soft. negative: Distention, Tenderness, Guarding, Rebound, Rigidity, Dimnished Bowel Sounds, Hyperactive Bowel Sounds, Hypoactive Bowel Sounds, Organomegaly, Trauma, Incision, Ascites, Mass, Bruit, Pulsatile Mass, Hernia, Other Abdominal Tenderness: negative: RUQ, RLQ, LUQ, LLQ, Epigastrium, Suprapubic, Diffuse, Mild, Moderate, Severe, Other - Extremeties Extremities Exam: Normal Inspection, Full ROM, Normal Capillary Refill. negativ e: Tenderness, Edema, Joint Swelling, Calf Tenderness, Other - Back Back Exam: Normal Inspection, Full ROM. negative: Tenderness, (R) CVA Tenderness, (L) CVA Tenderness, Muscle Spasm, Paraspinal Tenderness, Vertebral Tenderness, Rashes, (R) Sciatic Notch Tenderness, (L) Sciatic Notch Tendern, (R) Straight Leg Raise, (L) Straight Leg Raise, Other - Neurologic Neurological Exam: Alert, Oriented X3, CN II-XII Intact, Normal Gait, Reflexes Normal - Psychiatric Psychiatric Exam: Normal Affect, Normal Mood. negative: Depressed, Agitated, Anxious, Flat Affect, Manic, Homicidal Ideation, Suicidal Ideation, Other - Skin Skin Exam: Warm, Dry, Intact, Normal Color - Vital Signs Vitals: Temperature 98.6 F Pulse Rate [Right] 83 Pulse Rate 92 Respiratory Rate 18 Blood Pressure [Right Arm] 134/60 Blood Pressure [Left Arm] 178/90 Blood Pressure 181/87 O2 Sat by Pulse Oximetry 93 Course - Consultation Called: 01:00 Call Returned: 01:00 (Dr. Nichole to admit) - Education/Counseling Education/Counseling: Patient, Family Educated On: Treatment, Diagnosis, Needs for Follow Up ROR - Labs Reviewed Laboratory Results Reviewed?: Yes (All labs and x-ray results reviewed and discussed with patient) Result Diagrams: 05/21/19 22:24 05/21/19 22:24 - XRAY XRAY Interpreted by: Radiologist (CXR: Left lung pneumonia.) - Labs Reviewed Laboratory: WBC 5.4 X10^3/uL (3.6-10.0) 05/21/19 22:24 RBC 4.54 X10^6/uL (3.5-5.4) 05/21/19 22:24 Hgb 12.6 g/dL (12.0-16.0) 05/21/19 22:24 Hct 38.3 % (36.0-47.0) 05/21/19 22: MCV 84.5 fL (80.0-100.0) 05/21/19 22:24 MCH 27.8 pg (27.0-34.0) 05/21/19 22: MCHC 32.9 g/dL (33.0-35.0) L 05/21/19 22: RDW 15.5 % (11.6-16.5) 05/21/19:24 Plt Count 103 X10^3/uL (150.0-450.0) L 05/21/19: MPV 9.2 fL (7.4-11.0) 05/21/19 22: Neut % (Auto) 84.4 % (42.0-75.0) H 05/21/19: Lymph % (Auto) 11.5 % (21.0-51.0) L 05/21/19 22:24 [place] % (Auto) 3.8 % (0.0-13.0) 05/21/19 22: Eos % (Auto) 0.0 % (0.9-2.9) L 05/21/19: Baso % (Auto) 0.3 % (0.2-1.0) 05/21/19:24 Neut # (Auto) 4.6 x10^3/uL (2.2-4.8) 05/21/19 22: Lymph # (Auto) 0.6 X10^3/uL (1.3-2.9) L 05/21/19 22:24 [place] # (Auto) 0.2 x10^3/uL (0.3-0.8) L 05/21/19 22:24 Eos # (Auto) 0.0 x10^3/uL (0.0-0.2) 05/21/19 22: Baso # (Auto) 0.0 X10^3/uL (0.0-0.1) 05/21/19: Absolute Nucleated RBC 0.0 /100WBC 01/04/20 22:24 Sodium 138 mmol/L (136-145) 05/21/19 22:24 Corrected Sodium 138 mmol/L (136-145) 05/21/19 22:24 Potassium 3.7 mmol/L (3.5-5.1) 05/21/19 22:24 Chloride 98 mmol/L (98-107) 05/21/19 22:24 Carbon Dioxide 31.0 mmol/L (21-32) 05/21/19 22:24 BUN 12 mg/dL (7-18) 05/21/19 22:24 Creatinine 0.99 mg/dL (0.55-1.02) 05/21/19 22:24 Est GFR (MDRD) Af Amer > 60 (>60) 05/21/19 22:24 Est GFR (MDRD) Non-Af > 60 (>60) 05/21/19 22:24 Glucose 119 mg/dL (65-99) H 05/21/19 22:24 Calcium 8.5 mg/dL (8.5-10.1) 05/21/19 22:24 Corrected Calcium TNP 05/21/19 22:24 Total Bilirubin 0.20 mg/dL (0.2-1.0) 05/21/19 22:24 AST 85 Units/L (15-37) H 05/21/19 22:24 ALT 63 Units/L (12-78) 05/21/19 22:24 Alkaline Phosphatase 95 Units/L (46-116) 05/21/19 22:24 Total Protein 8.2 g/dL (6.4-8.2) 05/21/19 22:24 Albumin 3.7 g/dL (3.4-5.0) 05/21/19 22:24 Globulin 4.5 g/dL (2.5-4.5) 05/21/19 22:24 Albumin/Globulin Ratio 0.8 Ratio (1.1-2.1) L 05/21/19 22:24 Amylase 22 Units/L (25-115) L 05/21/19 22:24 Lipase 73 Units/L (73-393) 05/21/19 22:24 Influenza Type A (PCR) Positive (NEGATIVE) A 05/21/19 21:27 Influenza Type B (PCR) Negative (NEGATIVE) 05/21/19 21:27 S. pyogenes (TEM-PCR) Not detected (NOT DETECT) 05/21/19 21:27 Opioid - Opioid Risk Tool Age (Ray box if 16-45): No History of Preadolescent Sexual Abuse: No Total: 0 Total Score Risk Category: Low Risk - Diagnosis Discharge Problem: Pneumonia, Influenza A H1N1 infection, Hypoxemia requiring supplemental oxygen, Essential hypertension Diabetes mellitus Qualifiers: Diabetes mellitus type: type 2 Sinusitis Qualifiers: Sinusitis location: maxillary Chronicity: unspecified Qualified Code(s): J32.0 - Chronic maxillary sinusitis - Discharge Plan Disposition: 09 ADMITTED INPATIENT Condition: Stable Prescriptions: ibuprofen 800 mg PO TID PRN #30 tab PRN Reason: levofloxacin [Levaquin] 750 mg PO Q24H PRN #10 tab PRN Reason: oseltamivir [Tamiflu] 75 mg PO BID PRN #10 cap PRN Reason: - Follow ups/Referrals Follow ups/Referrals: NFD,None [Primary Care Provider] - 3 days Dung Nichole [STAFF PHYSICIAN] - 3 days - Instructions Instructions: Type 2 Diabetes Mellitus, Diagnosis, Adult, Influenza, Adult, [id number], Community-Acquired Pneumonia, Adult, [id number]
[2019-05-21] MEDS ORDERED: TORADOL 30 MG VIAL IVP ONE (22:14)
[2019-05-21] MEDS ORDERED: NS 1000 ML 1,000 ML IV ONE (22:14)
[2019-05-21 22:21] LABS: STREP A BY PCR NOT DETECTED (NOT DETECT)
[2019-05-21] MEDS ORDERED: TAMIFLU PO STA (22:21)
[2019-05-21] MEDS ORDERED: NS 1000 ML 1,000 ML ONE (22:29)
[2019-05-21] MEDS ORDERED: TAMIFLU PO ONE (22:30)
[2019-05-21] MEDS ORDERED: TORADOL 30 MG VIAL ONE (22:30)
[2019-05-21 22:40] LABS: BASOPHILS % (AUTO) 0.3 % (0.2-1.0); HEMATOCRIT 38.3 % (36.0-47.0); HEMOGLOBIN 12.6 g/dL (12.0-16.0); LYMPHOCYTES # (AUTO) 0.6 X10^3/uL (1.3-2.9); LYMPHOCYTES % (AUTO) 11.5 % (21.0-51.0); MEAN CORPUSCULAR HEMOGLOBIN 27.8 pg (27.0-34.0); MEAN CORPUSCULAR HGB CONC 32.9 g/dL (33.0-35.0); MEAN CORPUSCULAR VOLUME 84.5 fL (80.0-100.0); MEAN PLATELET VOLUME 9.2 fL (7.4-11.0); MONOCYTES # (AUTO) 0.2 x10^3/uL (0.3-0.8); MONOCYTES % (AUTO) 3.8 % (0.0-13.0); NEUTROPHILS # (AUTO) 4.6 x10^3/uL (2.2-4.8); NEUTROPHILS % (AUTO) 84.4 % (42.0-75.0); PLATELET COUNT 103 X10^3/uL (150.0-450.0); RED BLOOD COUNT 4.54 X10^6/uL (3.5-5.4); RED CELL DISTRIBUTION WIDTH 15.5 % (11.6-16.5); WHITE BLOOD COUNT 5.4 X10^3/uL (3.6-10.0)
[2019-05-21 22:49] LABS: ALANINE AMINOTRANSFERASE 63 Units/L (12-78); ALBUMIN 3.7 g/dL (3.4-5.0); ALKALINE PHOSPHATASE 95 Units/L (46-116); AMYLASE 22 Units/L (25-115); ASPARTATE AMINO TRANSFERASE 85 Units/L (15-37); BLOOD UREA NITROGEN 12 mg/dL (7-18); CALCIUM 8.5 mg/dL (8.5-10.1); CHLORIDE 98 mmol/L (98-107); COR NA(FOR HYPERGLY) 138 mmol/L (136-145); CREATININE 0.99 mg/dL (0.55-1.02); LIPASE 73 Units/L (73-393); SODIUM 138 mmol/L (136-145); TOTAL PROTEIN 8.2 g/dL (6.4-8.2); eGFR NON BLACK RACES > 60 (>60)
--- NOTE | 2019-05-21 23:17 | RAD ---
Chest AP portableIndication: Cough with green sputumCOMPARISONMay 2017FINDINGSThere is patchy left mid lung opacity. There is no pneumothorax. Heart size is within normal limits for technique. No large effusion seen.IMPRESSIONLeft lung pneumonia. Follow-up to resolution.Electronically signed by: FIDEL VALDEZ (May 21, 2019 23:16:09)
[2019-05-21] MEDS ORDERED: ROCEPHIN VIAL 1 GRAM 1 G in NS 100 ML IV + SPIKE MINIBAG* 100 ML IV ONE (23:49)
[2019-05-21] MEDS ORDERED: NS 100 ML IV + SPIKE MINIBAG* 100 ML IV ONE (23:51)
[2019-05-21] MEDS ORDERED: ROCEPHIN VIAL 1 GRAM ONE (23:51)
[2019-05-22] MEDS ORDERED: DUONEB 0.5 MG/3 MG (3 mL) NEB ONE ×2 (00:55→01:02)
[2019-05-22] MEDS ORDERED: SALINE 3% 15 ML NEB TX NEB ONE (01:57)
[2019-05-22] MEDS ORDERED: PEPCID 20 MG IV PREMIX* 20 MG/50 ML BAG IV ONE (03:41)
[2019-05-22] MEDS: PEPCID 20 MG IV PREMIX* 20 MG/50 ML BAG IV SCH ×3 (03:45→20:40)
[2019-05-22] MEDS: DUONEB 0.5 MG/3 MG (3 mL) NEB SCH ×5 (05:15→21:31)
[2019-05-22 05:40] LABS: BASOPHILS % (AUTO) 0.5 % (0.2-1.0); HEMATOCRIT 34.9 % (36.0-47.0); HEMOGLOBIN 11.5 g/dL (12.0-16.0); LYMPHOCYTES # (AUTO) 0.7 X10^3/uL (1.3-2.9); LYMPHOCYTES % (AUTO) 13.9 % (21.0-51.0); MEAN CORPUSCULAR HEMOGLOBIN 28.4 pg (27.0-34.0); MEAN CORPUSCULAR HGB CONC 32.9 g/dL (33.0-35.0); MEAN CORPUSCULAR VOLUME 86.2 fL (80.0-100.0); MEAN PLATELET VOLUME 9.5 fL (7.4-11.0); MONOCYTES # (AUTO) 0.1 x10^3/uL (0.3-0.8); MONOCYTES % (AUTO) 2.9 % (0.0-13.0); NEUTROPHILS # (AUTO) 4.1 x10^3/uL (2.2-4.8); NEUTROPHILS % (AUTO) 82.7 % (42.0-75.0); PLATELET COUNT 89 X10^3/uL (150.0-450.0); RED BLOOD COUNT 4.06 X10^6/uL (3.5-5.4); RED CELL DISTRIBUTION WIDTH 15.7 % (11.6-16.5); WHITE BLOOD COUNT 4.9 X10^3/uL (3.6-10.0)
[2019-05-22 05:56] LABS: ALANINE AMINOTRANSFERASE 58 Units/L (12-78); ALBUMIN 3.1 g/dL (3.4-5.0); ALKALINE PHOSPHATASE 85 Units/L (46-116); ASPARTATE AMINO TRANSFERASE 79 Units/L (15-37); BLOOD UREA NITROGEN 13 mg/dL (7-18); CALCIUM 7.7 mg/dL (8.5-10.1); CARBON DIOXIDE 29.8 mmol/L (21-32); CHLORIDE 99 mmol/L (98-107); COR CA(FOR HYPOALB) 8.4 mg/dL (8.5-10.1); COR NA(FOR HYPERGLY) 138 mmol/L (136-145); CREATININE 0.88 mg/dL (0.55-1.02); SODIUM 137 mmol/L (136-145); TOTAL PROTEIN 7.2 g/dL (6.4-8.2); eGFR NON BLACK RACES > 60 (>60)
[2019-05-22] MEDS ORDERED: POTASSIUM CHL 40 MEQ/NS 0.45% 500 ML IV PRN (06:25)
[2019-05-22] MEDS ORDERED: POTASSIUM CHLORIDE LIQ 20 MEQ UDC PO PRN (06:25)
[2019-05-22] MEDS ORDERED: MICRO K EXTEN CAP 10 MEQ PO PRN (06:25)
[2019-05-22] MEDS ORDERED: POTASSIUM CHL 60 MEQ/NS 0.45% 500 ML IV PRN (06:25)
[2019-05-22] MEDS ORDERED: K-RIDER 10 MEQ/NS 100 ML 10 MEQ/100 ML BAG IV PRN (06:25)
[2019-05-22] MEDS ORDERED: KLOR-CON PO PRN (06:25)
[2019-05-22] MEDS: MAGNESIUM SULFATE 1 GRAM/100 mL PREMIX 1 GM/100 ML BAG IV PRN ×2 (06:36→08:23)
[2019-05-22 07:07] VITALS: BMI 51.2
[2019-05-22] MEDS: TAMIFLU PO SCH ×2 (08:21→20:40)
[2019-05-22] MEDS: K-DUR TAB 20 MEQ PO PRN (08:21)
[2019-05-22] MEDS: COZAAR PO SCH (09:49)
[2019-05-22] MEDS ORDERED: NS 250 ML IV 250 ML IV ONE (09:49)
[2019-05-22] MEDS: NORVASC TAB 5 MG PO SCH (09:49)
[2019-05-22] MEDS ORDERED: NS 250 ML IV 250 ML IV PRN (09:50)
[2019-05-22] MEDS: LEVAQUIN PREMIX IV 750 MG 750 MG/150 ML BAG IV SCH (10:11)
--- NOTE | 2019-05-22 10:38 | DR.H&P ---
H&P History & Physical for Day of: H&P Date: 05/22/19 Chief Complaint Chief Complaint: cough, congestion and SOB Allergies Allergies Allergy/AdvReac Type Severity Reaction Status Date / Time No Known Drug Allergies Allergy Verified 04/21/18 18:05 History of Present Illness History of Present Illness: Ms. Ramos is a 48y/o female with a PMH of morbid obesity, HTN and Type 2 DM who presented with worsening cough, congestion and SOB that has been going on since . She reports body aches, decreased appetite and loose BMs with blood. She was exposed to a co-worker with flu. In the ED, she was positive for Influenza B and CXR showed LLL pneumonia. She was started on levaquin and Tamiflu. Patient was hypoxic and required increased oxygen so was admitted to ICU for closer monitoring. This morning, she reports feeling slightly better, currently on 4L NC. She reports productive cough. She still has nausea with no appetite, able to take in fluids. Past Medical History Past Medical History: Diabetes and Hypertension Past Surgical History Surgical History: Hysterectomy Family History Family Medical History: Diabetes Mellitus, Cancer, [place], Sudden Cardiac and Hypertension Social History Does patient currently use any type of tobacco product: No Have you used tobacco products in the last 12 months: No Type of Tobacco Use: None Does any household member use tobacco: No Alcohol Use: None Drug Use: None Medications Home Medications: No Known Drug Allergies Allergy (Verified 04/21/18 18:05) CONTINUE taking the following medications amlodipine [Norvasc] 5 mg PO DAILY 05/22/19 [History] ibuprofen 600 mg PO Q6H PRN 05/22/19 [History] losartan [Cozaar] 100 mg PO DAILY 05/22/19 [History] metformin [Glucophage XR] 500 mg PO BID 05/22/19 [History] Labs Result Diagrams: 05/22/19 05:19 05/22/19 05:19 Labs: 05/22/19 02:40 Sputum - Expectorated Sputum - Final Laboratory WBC 4.9 X10^3/uL (3.6-10.0) 05/22/19 05:19 RBC 4.06 X10^6/uL (3.5-5.4) 05/22/19 05:19 Hgb 11.5 g/dL (12.0-16.0) L 05/22/19 05:19 Hct 34.9 % (36.0-47.0) L 05/22/19 05:19 MCV 86.2 fL (80.0-100.0) 05/22/19 05:19 MCH 28.4 pg (27.0-34.0) 05/22/19 05:19 MCHC 32.9 g/dL (33.0-35.0) L 05/22/19 05:19 RDW 15.7 % (11.6-16.5) 05/22/19 05:19 Plt Count 89 X10^3/uL (150.0-450.0) L 05/22/19 05:19 MPV 9.5 fL (7.4-11.0) 05/22/19 05:19 Neut % (Auto) 82.7 % (42.0-75.0) H 05/22/19 05:19 Lymph % (Auto) 13.9 % (21.0-51.0) L 05/22/19 05:19 [place] % (Auto) 2.9 % (0.0-13.0) 05/22/19 05:19 Eos % (Auto) 0.0 % (0.9-2.9) L 05/22/19 05:19 Baso % (Auto) 0.5 % (0.2-1.0) 05/22/19 05:19 Neut # (Auto) 4.1 x10^3/uL (2.2-4.8) 05/22/19 05:19 Lymph # (Auto) 0.7 X10^3/uL (1.3-2.9) L 05/22/19 05:19 [place] # (Auto) 0.1 x10^3/uL (0.3-0.8) L 05/22/19 05:19 Eos # (Auto) 0.0 x10^3/uL (0.0-0.2) 05/22/19 05:19 Baso # (Auto) 0.0 X10^3/uL (0.0-0.1) 05/22/19 05:19 Absolute Nucleated RBC 0.1 /100WBC 05/22/19 05:19 Sodium 137 mmol/L (136-145) 05/22/19 05:19 Corrected Sodium 138 mmol/L (136-145) 05/22/19 05:19 Potassium 3.6 mmol/L (3.5-5.1) 05/22/19 05:19 Chloride 99 mmol/L (98-107) 05/22/19 05:19 Carbon Dioxide 29.8 mmol/L (21-32) 05/22/19 05:19 BUN 13 mg/dL (7-18) 05/22/19 05:19 Creatinine 0.88 mg/dL (0.55-1.02) 05/22/19 05:19 Est GFR (MDRD) Af Amer > 60 (>60) 05/22/19 05:19 Est GFR (MDRD) Non-Af > 60 (>60) 05/22/19 05:19 Glucose 133 mg/dL (65-99) H 05/22/19 05:19 POC Glucose (mg/dL) 128 mg/dL (65-99) H 05/22/19 05:17 Calcium 7.7 mg/dL (8.5-10.1) L 05/22/19 05:19 Corrected Calcium 8.4 mg/dL (8.5-10.1) L 05/22/19 05:19 Magnesium 1.9 mg/dL (1.7-2.9) 05/22/19 05:19 Total Bilirubin 0.20 mg/dL (0.2-1.0) 05/22/19 05:19 AST 79 Units/L (15-37) H 05/22/19 05:19 ALT 58 Units/L (12-78) 05/22/19 05:19 Alkaline Phosphatase 85 Units/L (46-116) 05/22/19 05:19 Total Protein 7.2 g/dL (6.4-8.2) 05/22/19 05:19 Albumin 3.1 g/dL (3.4-5.0) L 05/22/19 05:19 Globulin 4.1 g/dL (2.5-4.5) 05/22/19 05:19 Albumin/Globulin Ratio 0.8 Ratio (1.1-2.1) L 05/22/19 05:19 Amylase 22 Units/L (25-115) L 05/21/19 22:24 Lipase 73 Units/L (73-393) 05/21/19 22:24 Influenza Type A (PCR) Positive (NEGATIVE) A 05/21/19 21:27 Influenza Type B (PCR) Negative (NEGATIVE) 05/21/19 21:27 S. pyogenes (TEM-PCR) Not detected (NOT DETECT) 05/21/19 21:27 Review of Systems Constitutional: Fever, Chills, Weakness and Malaise Eyes: No Symptoms Reported ENT: Nose Congestion Respiratory: Cough, Shortness of Breath, SOB with Excertion and Sputum Cardiovascular: No Symptoms Reported Gastrointestinal: Nausea and Diarrhea Genitourinary: No Symptoms Reported Musculoskeletal: No Symptoms Reported Skin: No Symptoms Reported Neurological: No Symptoms Reported Physical Exam Vital Signs: Temperature 98.8 F Pulse Rate [Right] 83 Pulse Rate 78 Respiratory Rate 21 Blood Pressure [Right Arm] 134/60 Blood Pressure [Left Arm] 178/90 Blood Pressure 148/88 O2 Sat by Pulse Oximetry 94 Oriented: Normal Eyes: Normal Nose: Normal Throat: Normal Respiratory: Diminished Throughout Cardiovascular: Normal; negative Edema Auscultation: Bowel Sounds: Normal Palpation: Normal Tenderness: Normal Skin: Normal Musculoskeletal: Normal Psychiatric: Normal Mood Description: Calm Affect: Normal Speech Pattern: Clear and Appropriate Assessment/Plan (1) Hypoxemia requiring supplemental oxygen: Status: Acute Plan: due to underlying flu and pneumonia, continue O2 to keep sats >92%, wean as tolerated. Patient also with undiagnosed SANDI, discussed outpatient sleep study. (2) Influenza A: Status: Acute Plan: continue Tamiflu (3) CAP (community acquired pneumonia): Qualifiers: Laterality: left Lung location: lower lobe of lung Qualified Code(s): J18.9 - Pneumonia, unspecified organism Status: Acute Plan: continue Levaquin, sputum cultures pending Duonebs prn, gentle hydration (4) Thrombocytopenia: Status: Acute Plan: Plt: 87, denies ETOH use. Likely due to infection, monitor AM labs (5) Transaminitis: Status: Acute Plan: AST: 85 on admission, trending down. Denies ETOH use, monitor AM labs (6) Diarrhea: Qualifiers: Diarrhea type: unspecified type Qualified Code(s): R19.7 - Diarrhea, unspecified Status: Acute Plan: reports bloody diarrhea at home. Will check stool studies. Continue gentle hydration, Zofran prn. (7) Diabetes mellitus: Qualifiers: Diabetes mellitus complication status: without complication Diabetes mellitus watermelon harvesting supervisor insulin use: without watermelon harvesting supervisor use Diabetes mellitus type: type 2 Qualified Code(s): E11.9 - Type 2 diabetes mellitus without complications Status: Acute Plan: continue SSI (8) Essential hypertension: Status: Acute Plan: Resume home meds: amlodipine and losartan Review H&P Reviewed: Yes Patient was examined?: Yes
[2019-05-22] MEDS: HumuLIN R SC PRN (11:32)
[2019-05-22 14:39] LABS: BILIRUBIN,URINE NEGATIVE (NEGATIVE); BLOOD/HEMOGLOBIN,URINE 3+ (NEGATIVE); GLUCOSE, URINE NEGATIVE (NEGATIVE); KETONES,URINE NEGATIVE (NEGATIVE); LEUKOCYTE ESTERASE ,URINE NEGATIVE (NEGATIVE); NITRITES,URINE NEGATIVE (NEGATIVE); PROTEIN,URINE 2+ (NEGATIVE); UROBILINOGEN,URINE NORMAL (NORMAL)
[2019-05-22 14:41] LABS: APPEARANCE,URINE HAZY (CLEAR); COLOR,URINE YELLOW (YELLOW)
[2019-05-22 14:46] LABS: BACTERIA,URINE TRACE /HPF (NEGATIVE); MUCUS,URINE FEW /HPF (NEGATIVE); SQUAMOUS EPITHELIAL CELL,UR MODERATE /HPF (NEGATIVE)
[2019-05-23] MEDS: DUONEB 0.5 MG/3 MG (3 mL) NEB SCH ×6 (01:33→21:00)
[2019-05-23 06:15] LABS: BASOPHILS % (AUTO) 0.5 % (0.2-1.0); HEMATOCRIT 36.7 % (36.0-47.0); LYMPHOCYTES # (AUTO) 1.7 X10^3/uL (1.3-2.9); LYMPHOCYTES % (AUTO) 43.2 % (21.0-51.0); MEAN CORPUSCULAR HEMOGLOBIN 27.9 pg (27.0-34.0); MEAN CORPUSCULAR HGB CONC 32.6 g/dL (33.0-35.0); MEAN CORPUSCULAR VOLUME 85.5 fL (80.0-100.0); MEAN PLATELET VOLUME 9.9 fL (7.4-11.0); MONOCYTES # (AUTO) 0.2 x10^3/uL (0.3-0.8); MONOCYTES % (AUTO) 3.9 % (0.0-13.0); NEUTROPHILS # (AUTO) 2.1 x10^3/uL (2.2-4.8); NEUTROPHILS % (AUTO) 52.4 % (42.0-75.0); PLATELET COUNT 104 X10^3/uL (150.0-450.0); RED CELL DISTRIBUTION WIDTH 15.4 % (11.6-16.5)
[2019-05-23 06:26] LABS: ALANINE AMINOTRANSFERASE 54 Units/L (12-78); ALKALINE PHOSPHATASE 83 Units/L (46-116); ASPARTATE AMINO TRANSFERASE 88 Units/L (15-37); BLOOD UREA NITROGEN 12 mg/dL (7-18); CALCIUM 7.7 mg/dL (8.5-10.1); CARBON DIOXIDE 29.6 mmol/L (21-32); CHLORIDE 99 mmol/L (98-107); COR CA(FOR HYPOALB) 8.5 mg/dL (8.5-10.1); COR NA(FOR HYPERGLY) 137 mmol/L (136-145); CREATININE 1.02 mg/dL (0.55-1.02); MAGNESIUM 2.2 mg/dL (1.7-2.9); SODIUM 136 mmol/L (136-145); TOTAL PROTEIN 7.1 g/dL (6.4-8.2); eGFR NON BLACK RACES > 60 (>60)
[2019-05-23] MEDS: PEPCID 20 MG IV PREMIX* 20 MG/50 ML BAG IV SCH ×2 (09:12→21:00)
[2019-05-23] MEDS: TAMIFLU PO SCH ×2 (09:13→21:00)
[2019-05-23] MEDS: NORVASC TAB 5 MG PO SCH (09:13)
[2019-05-23] MEDS: LEVAQUIN PREMIX IV 750 MG 750 MG/150 ML BAG IV SCH (09:44)
[2019-05-23] MEDS: COZAAR PO SCH (09:49)
[2019-05-23] MEDS: LOVENOX INJ 40 MG SYR SC SCH (10:15)
[2019-05-23] MEDS: TORADOL 30 MG VIAL IVP PRN (10:55)
[2019-05-23] MEDS: HumuLIN R SC PRN (11:00)
[2019-05-24] MEDS: DUONEB 0.5 MG/3 MG (3 mL) NEB SCH ×6 (01:21→20:55)
[2019-05-24 06:25] LABS: BASOPHILS % (AUTO) 0.3 % (0.2-1.0); HEMATOCRIT 36.7 % (36.0-47.0); LYMPHOCYTES # (AUTO) 1.6 X10^3/uL (1.3-2.9); LYMPHOCYTES % (AUTO) 37.9 % (21.0-51.0); MEAN CORPUSCULAR HEMOGLOBIN 28.1 pg (27.0-34.0); MEAN CORPUSCULAR HGB CONC 32.8 g/dL (33.0-35.0); MEAN CORPUSCULAR VOLUME 85.5 fL (80.0-100.0); MONOCYTES # (AUTO) 0.3 x10^3/uL (0.3-0.8); NEUTROPHILS # (AUTO) 2.4 x10^3/uL (2.2-4.8); NEUTROPHILS % (AUTO) 55.8 % (42.0-75.0); PLATELET COUNT 105 X10^3/uL (150.0-450.0); RED BLOOD COUNT 4.29 X10^6/uL (3.5-5.4); RED CELL DISTRIBUTION WIDTH 15.8 % (11.6-16.5); WHITE BLOOD COUNT 4.3 X10^3/uL (3.6-10.0)
[2019-05-24 06:35] LABS: ALBUMIN 2.8 g/dL (3.4-5.0); CALCIUM 8.2 mg/dL (8.5-10.1); CARBON DIOXIDE 28.9 mmol/L (21-32); COR CA(FOR HYPOALB) 9.2 mg/dL (8.5-10.1); CREATININE 1.27 mg/dL (0.55-1.02); TOTAL PROTEIN 7.2 g/dL (6.4-8.2)
[2019-05-24] MEDS: PEPCID 20 MG IV PREMIX* 20 MG/50 ML BAG IV SCH ×2 (09:00→20:45)
[2019-05-24] MEDS: COZAAR PO SCH (09:00)
[2019-05-24] MEDS: NORVASC TAB 5 MG PO SCH (09:00)
[2019-05-24] MEDS: TAMIFLU PO SCH ×2 (09:00→20:45)
[2019-05-24] MEDS: TORADOL 30 MG VIAL IVP PRN (09:03)
[2019-05-24] MEDS: LOVENOX INJ 40 MG SYR SC SCH (09:04)
[2019-05-24] MEDS: LEVAQUIN PREMIX IV 750 MG 750 MG/150 ML BAG IV SCH (09:06)
[2019-05-24] MEDS: NS 1000 ML 1,000 ML IV SCH ×2 (09:09→19:35)
[2019-05-24] MEDS: HumuLIN R SC PRN (11:03)
[2019-05-25] MEDS: DUONEB 0.5 MG/3 MG (3 mL) NEB SCH ×6 (00:25→20:57)
[2019-05-25] MEDS: NS 1000 ML 1,000 ML IV SCH ×3 (03:12→20:55)
[2019-05-25 06:21] LABS: BASOPHILS % (AUTO) 0.3 % (0.2-1.0); HEMATOCRIT 33.8 % (36.0-47.0); HEMOGLOBIN 11.1 g/dL (12.0-16.0); LYMPHOCYTES # (AUTO) 2.4 X10^3/uL (1.3-2.9); LYMPHOCYTES % (AUTO) 58.9 % (21.0-51.0); MEAN CORPUSCULAR HEMOGLOBIN 27.9 pg (27.0-34.0); MEAN CORPUSCULAR HGB CONC 32.9 g/dL (33.0-35.0); MEAN CORPUSCULAR VOLUME 84.8 fL (80.0-100.0); MEAN PLATELET VOLUME 8.5 fL (7.4-11.0); MONOCYTES # (AUTO) 0.4 x10^3/uL (0.3-0.8); MONOCYTES % (AUTO) 9.7 % (0.0-13.0); NEUTROPHILS # (AUTO) 1.3 x10^3/uL (2.2-4.8); NEUTROPHILS % (AUTO) 31.1 % (42.0-75.0); PLATELET COUNT 108 X10^3/uL (150.0-450.0); RED BLOOD COUNT 3.99 X10^6/uL (3.5-5.4); RED CELL DISTRIBUTION WIDTH 16.1 % (11.6-16.5); WHITE BLOOD COUNT 4.1 X10^3/uL (3.6-10.0)
[2019-05-25 06:38] LABS: ALANINE AMINOTRANSFERASE 43 Units/L (12-78); ALBUMIN 2.5 g/dL (3.4-5.0); ALKALINE PHOSPHATASE 71 Units/L (46-116); ASPARTATE AMINO TRANSFERASE 73 Units/L (15-37); BLOOD UREA NITROGEN 13 mg/dL (7-18); CALCIUM 7.7 mg/dL (8.5-10.1); CARBON DIOXIDE 29.5 mmol/L (21-32); CHLORIDE 102 mmol/L (98-107); COR CA(FOR HYPOALB) 8.9 mg/dL (8.5-10.1); COR NA(FOR HYPERGLY) 139 mmol/L (136-145); CREATININE 0.93 mg/dL (0.55-1.02); SODIUM 138 mmol/L (136-145); TOTAL PROTEIN 6.5 g/dL (6.4-8.2); eGFR NON BLACK RACES > 60 (>60)
[2019-05-25] MEDS: NORVASC TAB 5 MG PO SCH (09:07)
[2019-05-25] MEDS: TAMIFLU PO SCH ×2 (09:07→21:18)
[2019-05-25] MEDS: PEPCID 20 MG IV PREMIX* 20 MG/50 ML BAG IV SCH ×2 (09:07→21:18)
[2019-05-25] MEDS: COZAAR PO SCH (09:08)
[2019-05-25] MEDS: LOVENOX INJ 40 MG SYR SC SCH (09:08)
[2019-05-25] MEDS: LEVAQUIN PREMIX IV 750 MG 750 MG/150 ML BAG IV SCH (09:48)
[2019-05-26] MEDS: DUONEB 0.5 MG/3 MG (3 mL) NEB SCH ×6 (01:19→21:00)
[2019-05-26] MEDS: NS 1000 ML 1,000 ML IV SCH ×4 (01:35→18:39)
[2019-05-26] MEDS: PEPCID 20 MG IV PREMIX* 20 MG/50 ML BAG IV SCH ×4 (03:22→21:44)
[2019-05-26 05:55] LABS: BASOPHILS % (AUTO) 0.4 % (0.2-1.0); EOSINOPHILS % (AUTO) 0.1 % (0.9-2.9); HEMATOCRIT 32.9 % (36.0-47.0); HEMOGLOBIN 10.9 g/dL (12.0-16.0); LYMPHOCYTES # (AUTO) 2.7 X10^3/uL (1.3-2.9); LYMPHOCYTES % (AUTO) 52.4 % (21.0-51.0); MEAN CORPUSCULAR HEMOGLOBIN 28.3 pg (27.0-34.0); MEAN CORPUSCULAR VOLUME 85.6 fL (80.0-100.0); MEAN PLATELET VOLUME 8.9 fL (7.4-11.0); MONOCYTES # (AUTO) 0.7 x10^3/uL (0.3-0.8); MONOCYTES % (AUTO) 14.1 % (0.0-13.0); NEUTROPHILS # (AUTO) 1.7 x10^3/uL (2.2-4.8); PLATELET COUNT 111 X10^3/uL (150.0-450.0); RED BLOOD COUNT 3.84 X10^6/uL (3.5-5.4); RED CELL DISTRIBUTION WIDTH 15.7 % (11.6-16.5); WHITE BLOOD COUNT 5.2 X10^3/uL (3.6-10.0)
[2019-05-26 06:17] LABS: ALANINE AMINOTRANSFERASE 38 Units/L (12-78); ALBUMIN 2.6 g/dL (3.4-5.0); ALKALINE PHOSPHATASE 71 Units/L (46-116); ASPARTATE AMINO TRANSFERASE 60 Units/L (15-37); BLOOD UREA NITROGEN 9 mg/dL (7-18); CALCIUM 7.8 mg/dL (8.5-10.1); CARBON DIOXIDE 31.9 mmol/L (21-32); CHLORIDE 102 mmol/L (98-107); COR CA(FOR HYPOALB) 8.9 mg/dL (8.5-10.1); COR NA(FOR HYPERGLY) 140 mmol/L (136-145); CREATININE 0.75 mg/dL (0.55-1.02); SODIUM 139 mmol/L (136-145); TOTAL PROTEIN 6.5 g/dL (6.4-8.2); eGFR NON BLACK RACES > 60 (>60)
--- NOTE | 2019-05-26 07:14 | RAD ---
HISTORYPNEUMONIASTUDYCHEST, PA/LAT ADULTCOMPARISONAP CHEST MAY 21, 2019.FINDINGSThe trachea is midline. The cardiac silhouette is unremarkable. THERE IS MILD INCREASE IN THE INFILTRATE IN THE LEFT MID AND LOWER LUNG FIELD AND NEW INFILTRATE IN THE RIGHT MEDIAL LUNG BASE WHEN COMPARED TO THE PRIOR FILM 21 MAY 2019. THERE ARE NO EFFUSIONS. THERE IS NO ADENOPATHY.. The bony thorax is unremarkable.IMPRESSIONWORSENING BILATERAL ALVEOLAR INFILTRATES CONSISTENT WITH PNEUMONIA.Electronically signed by: QI SANCHEZ (May 26, 2019 07:12:20)
[2019-05-26] MEDS: COZAAR PO SCH (08:22)
[2019-05-26] MEDS: NORVASC TAB 5 MG PO SCH (08:22)
[2019-05-26] MEDS: TAMIFLU PO SCH ×2 (08:22→21:44)
[2019-05-26] MEDS: LEVAQUIN PREMIX IV 750 MG 750 MG/150 ML BAG IV SCH (08:23)
[2019-05-26] MEDS: LOVENOX INJ 40 MG SYR SC SCH (08:29)
[2019-05-26] MEDS ORDERED: DUONEB 0.5 MG/3 MG (3 mL) NEB ONE (08:30)
[2019-05-26] MEDS ORDERED: TESSALON PERLES PO ONE (12:33)
--- NOTE | 2019-05-26 14:58 | CT ---
HISTORYHypoxiaSTUDYCTA chest after intravenous infusion of 75 milliliters Omnipaque 350. Sagittal and coronal and axial MIPS of the pulmonary arteries were displayed. Dose reduction techniques were utilized.COMPARISONNoneFINDINGSThere is severe patchy perihilar airspace disease in the left upper lobe with air bronchograms. Airspace disease extends into the lingula and into the lower lobe and into the posterior basilar segment of the right lower lobe and in the right middle lobe and right upper lobe peripherally. There is no pleural effusion. The visualized upper abdomen is unremarkable. No pulmonary embolus is demonstrated.IMPRESSIONPatchy bronchopneumonia, left lung worse than right.No evidence for pulmonary embolus.Electronically signed by: LUIS E GIPSON (May 26, 2019 14:57:20)
[2019-05-27] MEDS: NS 1000 ML 1,000 ML IV SCH ×4 (00:05→18:12)
[2019-05-27] MEDS: DUONEB 0.5 MG/3 MG (3 mL) NEB SCH ×6 (01:15→20:17)
[2019-05-27 06:31] LABS: BASOPHILS % (AUTO) 0.4 % (0.2-1.0); EOSINOPHILS % (AUTO) 0.2 % (0.9-2.9); HEMATOCRIT 33.5 % (36.0-47.0); HEMOGLOBIN 11.1 g/dL (12.0-16.0); LYMPHOCYTES # (AUTO) 2.6 X10^3/uL (1.3-2.9); LYMPHOCYTES % (AUTO) 44.2 % (21.0-51.0); MEAN CORPUSCULAR HEMOGLOBIN 28.1 pg (27.0-34.0); MEAN CORPUSCULAR VOLUME 85.3 fL (80.0-100.0); MEAN PLATELET VOLUME 8.8 fL (7.4-11.0); MONOCYTES # (AUTO) 0.6 x10^3/uL (0.3-0.8); MONOCYTES % (AUTO) 10.5 % (0.0-13.0); NEUTROPHILS # (AUTO) 2.6 x10^3/uL (2.2-4.8); NEUTROPHILS % (AUTO) 44.7 % (42.0-75.0); PLATELET COUNT 133 X10^3/uL (150.0-450.0); RED BLOOD COUNT 3.93 X10^6/uL (3.5-5.4); RED CELL DISTRIBUTION WIDTH 16.1 % (11.6-16.5); WHITE BLOOD COUNT 5.8 X10^3/uL (3.6-10.0)
[2019-05-27 06:50] LABS: ALANINE AMINOTRANSFERASE 40 Units/L (12-78); ALBUMIN 2.8 g/dL (3.4-5.0); ALKALINE PHOSPHATASE 73 Units/L (46-116); ASPARTATE AMINO TRANSFERASE 56 Units/L (15-37); BLOOD UREA NITROGEN 8 mg/dL (7-18); CARBON DIOXIDE 29.8 mmol/L (21-32); CHLORIDE 103 mmol/L (98-107); COR NA(FOR HYPERGLY) 141 mmol/L (136-145); CREATININE 0.82 mg/dL (0.55-1.02); SODIUM 140 mmol/L (136-145); TOTAL PROTEIN 6.9 g/dL (6.4-8.2); eGFR NON BLACK RACES > 60 (>60)
[2019-05-27] MEDS: LEVAQUIN PREMIX IV 750 MG 750 MG/150 ML BAG IV SCH (10:00)
[2019-05-27] MEDS: PEPCID 20 MG IV PREMIX* 20 MG/50 ML BAG IV SCH ×2 (10:01→21:35)
[2019-05-27] MEDS: NORVASC TAB 5 MG PO SCH (10:01)
[2019-05-27] MEDS: TAMIFLU PO SCH ×2 (10:01→21:35)
[2019-05-27] MEDS: COZAAR PO SCH (10:01)
[2019-05-27] MEDS: LOVENOX INJ 40 MG SYR SC SCH (10:02)
[2019-05-27] MEDS ORDERED: ANTIVERT TAB 25 MG PO PRN (10:19)
[2019-05-27] MEDS: RHINOCORT ALLERGY NASAL SPRAY ENOSTRIL SCH (14:45)
[2019-05-28] MEDS: NS 1000 ML 1,000 ML IV SCH ×6 (00:19→17:11)
[2019-05-28] MEDS: DUONEB 0.5 MG/3 MG (3 mL) NEB SCH ×6 (00:45→20:12)
[2019-05-28 07:17] LABS: BASOPHILS % (AUTO) 0.3 % (0.2-1.0); EOSINOPHILS % (AUTO) 0.4 % (0.9-2.9); HEMOGLOBIN 10.8 g/dL (12.0-16.0); LYMPHOCYTES # (AUTO) 2.9 X10^3/uL (1.3-2.9); LYMPHOCYTES % (AUTO) 51.3 % (21.0-51.0); MEAN CORPUSCULAR HEMOGLOBIN 27.9 pg (27.0-34.0); MEAN CORPUSCULAR HGB CONC 32.8 g/dL (33.0-35.0); MEAN CORPUSCULAR VOLUME 85.1 fL (80.0-100.0); MEAN PLATELET VOLUME 8.7 fL (7.4-11.0); MONOCYTES # (AUTO) 0.5 x10^3/uL (0.3-0.8); MONOCYTES % (AUTO) 8.7 % (0.0-13.0); NEUTROPHILS # (AUTO) 2.2 x10^3/uL (2.2-4.8); NEUTROPHILS % (AUTO) 39.3 % (42.0-75.0); PLATELET COUNT 163 X10^3/uL (150.0-450.0); RED BLOOD COUNT 3.88 X10^6/uL (3.5-5.4); RED CELL DISTRIBUTION WIDTH 15.8 % (11.6-16.5); WHITE BLOOD COUNT 5.7 X10^3/uL (3.6-10.0)
[2019-05-28 07:25] LABS: ALANINE AMINOTRANSFERASE 44 Units/L (12-78); ALBUMIN 2.9 g/dL (3.4-5.0); ALKALINE PHOSPHATASE 65 Units/L (46-116); ASPARTATE AMINO TRANSFERASE 58 Units/L (15-37); BLOOD UREA NITROGEN 6 mg/dL (7-18); CALCIUM 7.6 mg/dL (8.5-10.1); CARBON DIOXIDE 28.4 mmol/L (21-32); CHLORIDE 102 mmol/L (98-107); COR CA(FOR HYPOALB) 8.5 mg/dL (8.5-10.1); COR NA(FOR HYPERGLY) 140 mmol/L (136-145); CREATININE 0.74 mg/dL (0.55-1.02); SODIUM 139 mmol/L (136-145); TOTAL PROTEIN 6.6 g/dL (6.4-8.2); eGFR NON BLACK RACES > 60 (>60)
[2019-05-28 08:21] LABS: BAND NEUTROPHILS % 2 % (0-10); PLATELET MORPHOLOGY COMMENT NORMAL (NORMAL)
[2019-05-28] MEDS ORDERED: POTASSIUM CHL 60 MEQ/NS 0.45% 500 ML IV PRN (08:23)
[2019-05-28] MEDS ORDERED: POTASSIUM CHLORIDE LIQ 20 MEQ UDC PO PRN (08:23)
[2019-05-28] MEDS ORDERED: MICRO K EXTEN CAP 10 MEQ PO PRN (08:23)
[2019-05-28] MEDS ORDERED: K-DUR TAB 20 MEQ PO PRN (08:23)
[2019-05-28] MEDS ORDERED: KLOR-CON PO PRN (08:23)
[2019-05-28] MEDS ORDERED: K-RIDER 10 MEQ/NS 100 ML 10 MEQ/100 ML BAG IV PRN (08:23)
[2019-05-28] MEDS ORDERED: POTASSIUM CHL 40 MEQ/NS 0.45% 500 ML IV PRN (08:23)
[2019-05-28] MEDS: RHINOCORT ALLERGY NASAL SPRAY ENOSTRIL SCH (09:42)
[2019-05-28] MEDS: LEVAQUIN PREMIX IV 750 MG 750 MG/150 ML BAG IV SCH (09:42)
[2019-05-28] MEDS: PEPCID 20 MG IV PREMIX* 20 MG/50 ML BAG IV SCH ×2 (09:42→21:38)
[2019-05-28] MEDS: LOVENOX INJ 40 MG SYR SC SCH (09:42)
[2019-05-28] MEDS: NORVASC TAB 5 MG PO SCH (09:44)
[2019-05-28] MEDS: COZAAR PO SCH (09:44)
[2019-05-28] MEDS: K-DUR TAB 20 MEQ PO PRN (09:44)
[2019-05-28] MEDS: TAMIFLU PO SCH ×2 (09:45→21:20)
[2019-05-28 11:00] LABS: ABG BASE EXCESS 8.1 mmol/L (-2.0-2.0)
[2019-05-28 11:01] LABS: ABG ALLEN TEST POS
[2019-05-28] MEDS ORDERED: VSL#3 PO ONE (11:46)
[2019-05-28] MEDS ORDERED: ACTOS PO ONE (11:46)
[2019-05-28] MEDS: ACTOS PO SCH (11:47)
[2019-05-28] MEDS: VSL#3 PO SCH (11:48)
[2019-05-28] MEDS: K-DUR TAB 20 MEQ PO SCH ×2 (13:07→21:20)
[2019-05-28] MEDS: MAGNESIUM SULFATE 1 GRAM/100 mL PREMIX 1 GM/100 ML BAG IV PRN ×2 (21:27→22:37)
[2019-05-29] MEDS: DUONEB 0.5 MG/3 MG (3 mL) NEB SCH ×7 (00:31→21:02)
[2019-05-29] MEDS: NS 1000 ML 1,000 ML IV SCH ×5 (03:10→20:58)
[2019-05-29 05:58] LABS: ALANINE AMINOTRANSFERASE 52 Units/L (12-78); ALBUMIN 2.9 g/dL (3.4-5.0); ALKALINE PHOSPHATASE 66 Units/L (46-116); ASPARTATE AMINO TRANSFERASE 66 Units/L (15-37); BLOOD UREA NITROGEN 6 mg/dL (7-18); CALCIUM 7.9 mg/dL (8.5-10.1); CARBON DIOXIDE 28.7 mmol/L (21-32); CHLORIDE 103 mmol/L (98-107); COR CA(FOR HYPOALB) 8.8 mg/dL (8.5-10.1); COR NA(FOR HYPERGLY) 140 mmol/L (136-145); CREATININE 0.82 mg/dL (0.55-1.02); MAGNESIUM 2.2 mg/dL (1.7-2.9); SODIUM 139 mmol/L (136-145); TOTAL PROTEIN 6.8 g/dL (6.4-8.2); eGFR NON BLACK RACES > 60 (>60)
[2019-05-29 06:07] LABS: BASOPHILS % (AUTO) 0.2 % (0.2-1.0); EOSINOPHILS # (AUTO) 0.1 x10^3/uL (0.0-0.2); EOSINOPHILS % (AUTO) 1.2 % (0.9-2.9); HEMATOCRIT 33.2 % (36.0-47.0); LYMPHOCYTES # (AUTO) 2.8 X10^3/uL (1.3-2.9); LYMPHOCYTES % (AUTO) 45.1 % (21.0-51.0); MEAN CORPUSCULAR HEMOGLOBIN 28.3 pg (27.0-34.0); MEAN CORPUSCULAR HGB CONC 33.2 g/dL (33.0-35.0); MEAN CORPUSCULAR VOLUME 85.3 fL (80.0-100.0); MEAN PLATELET VOLUME 8.4 fL (7.4-11.0); MONOCYTES # (AUTO) 0.6 x10^3/uL (0.3-0.8); MONOCYTES % (AUTO) 9.7 % (0.0-13.0); NEUTROPHILS # (AUTO) 2.7 x10^3/uL (2.2-4.8); NEUTROPHILS % (AUTO) 43.8 % (42.0-75.0); PLATELET COUNT 192 X10^3/uL (150.0-450.0); WHITE BLOOD COUNT 6.1 X10^3/uL (3.6-10.0)
[2019-05-29 07:02] LABS: PLATELET MORPHOLOGY COMMENT NORMAL (NORMAL)
--- NOTE | 2019-05-29 08:24 | RAD ---
HISTORYPNEUMONIASTUDYCHEST, PA/LAT [id number]/09/2020FINDINGSThe trachea is midline. The cardiac silhouette is enlarged. There are bilateral airspace opacities and consolidations similar to the comparison study compatible with reported history of pneumonia. There is no significant pleural effusion or pneumothorax.IMPRESSIONUnchanged exam with bilateral consolidations compatible with reported history of pneumonia.Electronically signed by: BYRON DAMICO (May 29, 2019 08:22:44)
[2019-05-29] MEDS: LEVAQUIN PREMIX IV 750 MG 750 MG/150 ML BAG IV SCH (09:33)
[2019-05-29] MEDS: K-DUR TAB 20 MEQ PO SCH ×2 (09:33→20:57)
[2019-05-29] MEDS: PEPCID 20 MG IV PREMIX* 20 MG/50 ML BAG IV SCH ×2 (09:33→20:58)
[2019-05-29] MEDS: COZAAR PO SCH (09:33)
[2019-05-29] MEDS: ACTOS PO SCH (09:34)
[2019-05-29] MEDS: NORVASC TAB 5 MG PO SCH (09:34)
[2019-05-29] MEDS: TAMIFLU PO SCH ×2 (09:34→20:58)
[2019-05-29] MEDS: RHINOCORT ALLERGY NASAL SPRAY ENOSTRIL SCH (09:34)
[2019-05-29] MEDS: VSL#3 PO SCH (09:35)
[2019-05-29] MEDS: LOVENOX INJ 40 MG SYR SC SCH (09:59)
[2019-05-30] MEDS: DUONEB 0.5 MG/3 MG (3 mL) NEB SCH ×3 (01:10→10:26)
[2019-05-30] MEDS: NS 1000 ML 1,000 ML IV SCH ×2 (03:51→09:13)
[2019-05-30 05:11] LABS: BASOPHILS % (AUTO) 0.4 % (0.2-1.0); EOSINOPHILS # (AUTO) 0.1 x10^3/uL (0.0-0.2); EOSINOPHILS % (AUTO) 1.8 % (0.9-2.9); HEMATOCRIT 33.5 % (36.0-47.0); LYMPHOCYTES # (AUTO) 3.1 X10^3/uL (1.3-2.9); LYMPHOCYTES % (AUTO) 41.2 % (21.0-51.0); MEAN CORPUSCULAR HGB CONC 32.8 g/dL (33.0-35.0); MEAN CORPUSCULAR VOLUME 85.5 fL (80.0-100.0); MEAN PLATELET VOLUME 8.6 fL (7.4-11.0); MONOCYTES # (AUTO) 0.6 x10^3/uL (0.3-0.8); MONOCYTES % (AUTO) 8.6 % (0.0-13.0); NEUTROPHILS # (AUTO) 3.6 x10^3/uL (2.2-4.8); PLATELET COUNT 226 X10^3/uL (150.0-450.0); RED BLOOD COUNT 3.92 X10^6/uL (3.5-5.4); WHITE BLOOD COUNT 7.5 X10^3/uL (3.6-10.0)
[2019-05-30 05:27] LABS: ALANINE AMINOTRANSFERASE 60 Units/L (12-78); ALBUMIN 2.9 g/dL (3.4-5.0); ALKALINE PHOSPHATASE 68 Units/L (46-116); ASPARTATE AMINO TRANSFERASE 59 Units/L (15-37); BLOOD UREA NITROGEN 8 mg/dL (7-18); CALCIUM 7.9 mg/dL (8.5-10.1); CARBON DIOXIDE 27.9 mmol/L (21-32); CHLORIDE 104 mmol/L (98-107); COR CA(FOR HYPOALB) 8.8 mg/dL (8.5-10.1); COR NA(FOR HYPERGLY) 139 mmol/L (136-145); CREATININE 0.81 mg/dL (0.55-1.02); SODIUM 138 mmol/L (136-145); TOTAL PROTEIN 6.8 g/dL (6.4-8.2); eGFR NON BLACK RACES > 60 (>60)
[2019-05-30] MEDS: VSL#3 PO SCH (09:06)
[2019-05-30] MEDS: PEPCID 20 MG IV PREMIX* 20 MG/50 ML BAG IV SCH (09:06)
[2019-05-30] MEDS: K-DUR TAB 20 MEQ PO SCH (09:06)
[2019-05-30] MEDS: LEVAQUIN PREMIX IV 750 MG 750 MG/150 ML BAG IV SCH (09:06)
[2019-05-30] MEDS: TAMIFLU PO SCH (09:07)
[2019-05-30] MEDS: COZAAR PO SCH (09:07)
[2019-05-30] MEDS: NORVASC TAB 5 MG PO SCH (09:07)
[2019-05-30] MEDS: ACTOS PO SCH (09:07)
[2019-05-30] MEDS: RHINOCORT ALLERGY NASAL SPRAY ENOSTRIL SCH (09:13)
[2019-05-30] MEDS: LOVENOX INJ 40 MG SYR SC SCH (12:34)
[2019-05-30 12:37] VITALS: BP 177/78
== END 2019-05-30 14:40 | disposition home or self-care (01) | DRG 195 ==
LOC: ER 21:23 → ICU 05-22 01:21 → MED/SURG 05-25 19:32
PROVIDERS: ADMIT Obstetrics & Gynecology Obstetrics; ATTEND Obstetrics & Gynecology Obstetrics
DX: R09.02 Hypoxemia; E11.65 Type 2 diabetes mellitus with hyperglycemia; R74.0 Nonspecific elevation of levels of transaminase and lactic acid dehydrogenase [LDH]; E66.01 Morbid (severe) obesity due to excess calories; R51 Headache; R26.89 Other abnormalities of gait and mobility; I87.2 Venous insufficiency (chronic) (peripheral); J10.1 Influenza due to other identified influenza virus with other respiratory manifestations; Z99.81 Dependence on supplemental oxygen; R42 Dizziness and giddiness; R19.7 Diarrhea, unspecified; J18.8 Other pneumonia, unspecified organism; J32.0 Chronic maxillary sinusitis; D69.6 Thrombocytopenia, unspecified; I10 Essential (primary) hypertension
CPT/HCPCS: 36415; 36556; 36600; 71010; 71020; 71045; 71046; 71275; 80053; 81001; 82150; 82270; 82803; 83630; 83690; 83735; 85025; 87045; 87070; 87205; 87427; 87449; 87493; 87502; 87651; 87899; 94640; 94669; 96365; 96367; 96374; 96375; 97110; 97116; 97162; 97166; 97530; 97535; 99285; A4216; A4222; G9035; S0028; J0696; J1650; J1815; J1885; J1956; J3475; J7030; J7050; J7620

== ENCOUNTER 2019-05-30 16:27 | Observation (INO) ==
--- NOTE | 2019-05-30 16:50 | DR.SOBA ---
HPI Time Seen Time Seen by Provider: 05/30/19 16:49 HPI Comment HPI Comment: PATIENT IS 48YR OLD FEMALE DISCHARGE FROM HOSPITAL TODAY RETURN WITH INCREASING SOB AND OXYGEN DESATURATION. SHE WAS TREATED FOR PNEUMONIA IN HOSPITAL DURING ILLNESS WITH THE FLU. SOB WORSE ON EXATION. SHE IS A DIABETIC AND HAVE HYPERTENSION. BP IS ELEVATED. HAVE TAKEN HER ONCE A DAY BP MED ALREADY. Complaints Chief Complaint Doctors Comments: INCREASING SOB AND OXYGEN DESATURATION. VIA EMS. Reviewed Nurses Notes Reviewed: Yes Source History Provided: Patient and Family Member Mode of Arrival Mode of Arrival: EMS Duration Duration: Days Context Onset:: With Light Exertion PE Risk Factors:: None History of:: None Currently on:: Neither Prehospital Care:: None Modifying Factors Worsens:: Exertion and Lying Flat Improves:: Rest and Sitting Up Associated Signs and Symptoms Associated Signs and Symptoms: Wheeze and Cough If Chest Pain Quality: Pleuritic Location: Right Upper Chest, Right Lower Chest, Left Upper Chest, Left Lower Chest and Substernal If Cough Cough: Nonproductive PMH PMH Past Medical History: Diabetes and Hypertension Past Surgical History: Yes Surgical History: Hysterectomy Family History Family Medical History: Diabetes Mellitus, Cancer, [place], Sudden Cardiac and Hypertension Social History Do you use any recreational Drugs:: No infectious screening Isolation: Droplet ROS Review of Systems Constitutional: See HPI, Weakness and Fatigue; negative Fever Eyes: No Symptoms Reported and See HPI; negative Eye Pain, Blurred Vision and Di plopia ENTM: See HPI; negative Ear Pain, Nose Congestion and Throat Pain Respiratoy: See HPI, Moist Cough, Short of Breath and Wheezing Cardiovascular: No Symptoms Reported and See HPI; negative Chest Pain, Edema, Palpitations and Cyanosis Gastrointestinal/Abdominal: No Symptoms Reported and See HPI; negative Abdominal Pain, Constipation, Diarrhea, Nausea and Vomiting Genitourinary: No Symptoms Reported and See HPI; negative Dysuria, Frequency, Hematuria and Pain Neurological: See HPI, Weakness and Dizziness Musculoskeletal: No Symptoms Reported and See HPI Integumentary: No Symptoms Reported and See HPI; negative Change in Color, Rash and Juandice Hematologic/Lymphatic: No Symptoms Reported and See HPI; negative Easy Bruising and Swollen Glands Endocrine: No Symptoms Reported and See HPI; negative Increased Thirst, Increased Urine and Decreased Appetite Psychiatric: No Symptoms Reported and See HPI All Other Systems: Reviewed and Negative PE Vital Signs Vitals: Temperature 98.3 F Pulse Rate 77 Respiratory Rate 22 Blood Pressure [Right Arm] 134/60 Blood Pressure [Left Arm] 139/65 Blood Pressure 180/92 O2 Sat by Pulse Oximetry 90 General Limitations: No Limitations General Appearance: Alert and In Distress Head Head Exam: Normal Inspection and Atraumatic Eyes Eye exam: Normal Appearance, PERRL and EOMI; negative Scleral Icterus and Conjunctival Injection ENT ENT Exam: Normal Exam, Normal Oropharynx and Normal External Ear Exam Neck Neck Exam: Normal Inspection and Trachea Midline; negative Tenderness and Lymphadenopathy Chest Chest Inspection: Normal Inspection and Symmetric Chest Wall Rise; negative Tenderness Respiratory Respiratory Exam: Normal Lung Sounds Bilat and Respiratory Distress; negative Accessory Muscle Use and Chest Wall Tenderness Respiratory Exam: Bilateral: Wheezing and Bilateral: Rhonchi, Upper: Wheezing and Lower: Wheezing and Lower: Rhonchi Cardiovascular Cardiovascular Exam: Regular Rate, Normal Rhythm and Normal Heart Sounds; negative Systolic Murmur and Diastolic Murmur Abdominal Exam Abdominal Exam: Normal Inspection, Normal Bowel Sounds and Soft; negative Tenderness Extremities Extremities Exam: Normal Inspection and Normal Capillary Refill; negative Tenderness, Edema and Calf Tenderness Back Back Exam: Normal Inspection and Full ROM; negative Tenderness, (R) CVA Tenderness, (L) CVA Tenderness, Paraspinal Tenderness and Vertebral Tenderness Neurologic Neurological Exam: Alert, Oriented X3 and CN II-XII Intact; negative Motor Sensory Deficit Psychiatric Psychiatric Exam: Normal Affect and Normal Mood Skin Skin Exam: Warm, Dry, Intact and Normal Color MDM Differential Diagnosis Differential Diagnosis: Bronchitis, CHF, COPD, Dysrhythmia, Hypertensive Emergency, Hyponatremia, Mycardial Infarction, Pneumonia, Pneumothorax, Pulmonary embolism, Respiratory Insufficiency and URI COURSE Treatment Treatment: SEE ORDERS. Consultation Consultation Comments: DISCUSSED PATIENT WITH DR. RIVERA. HE WILL ADMIT PATIENT. Education/Counseling Education/Counseling: Patient and Family Educated On: Diagnosis ROR Labs Reviewed Laboratory Results Reviewed?: Yes Result Diagrams: 05/30/19 17:05 05/30/19 17:05 Laboratory: WBC 7.7 X10^3/uL (3.6-10.0) 05/30/19 17:05 RBC 4.14 X10^6/uL (3.5-5.4) 05/30/19 17:05 Hgb 11.6 g/dL (12.0-16.0) L 05/30/19 17:05 Hct 35.4 % (36.0-47.0) L 05/30/19 17:05 MCV 85.4 fL (80.0-100.0) 05/30/19 17:05 MCH 27.9 pg (27.0-34.0) 05/30/19 17:05 MCHC 32.7 g/dL (33.0-35.0) L 05/30/19 17:05 RDW 15.9 % (11.6-16.5) 05/30/19 17:05 Plt Count 253 X10^3/uL (150.0-450.0) 05/30/19 17:05 MPV 8.4 fL (7.4-11.0) 05/30/19 17:05 Neut % (Auto) 52.0 % (42.0-75.0) 05/30/19 17:05 Lymph % (Auto) 36.9 % (21.0-51.0) 05/30/19 17:05 Harrison % (Auto) 8.5 % (0.0-13.0) 05/30/19 17:05 Eos % (Auto) 2.2 % (0.9-2.9) 05/30/19 17:05 Baso % (Auto) 0.4 % (0.2-1.0) 05/30/19 17:05 Neut # (Auto) 4.0 x10^3/uL (2.2-4.8) 05/30/19 17:05 Lymph # (Auto) 2.8 X10^3/uL (1.3-2.9) 05/30/19 17:05 Harrison # (Auto) 0.7 x10^3/uL (0.3-0.8) 05/30/19 17:05 Eos # (Auto) 0.2 x10^3/uL (0.0-0.2) 05/30/19 17:05 Baso # (Auto) 0.0 X10^3/uL (0.0-0.1) 05/30/19 17:05 Absolute Nucleated RBC 0.1 /100WBC 05/30/19 17:05 D-Dimer 2980 ng/mL (0-400) H* 05/30/19 17:08 Sample Site Rr 05/30/19 18:55 ABG pH 7.500 (7.35-7.45) H 05/30/19 18:55 ABG pCO2 36.0 mmHg (35.0-45.0) 05/30/19 18:55 ABG pO2 45.0 mmHg (80.0-100.0) L* 05/30/19 18:55 ABG HCO3 28.1 mmol/L (22-26) H 05/30/19 18:55 ABG O2 Saturation 85.0 % (90-100) L 05/30/19 18:55 ABG Base Excess 4.8 mmol/L (-2.0-2.0) H 05/30/19 18:55 Gerardo Test Pos 05/30/19 18:55 A-a Gradient 60.0 mmHg 05/30/19 18:55 FiO2 21.0 05/30/19 18:55 Blood Gas Comments Huma well cb aw 05/30/19 18:55 Sodium 138 mmol/L (136-145) 05/30/19 17:05 Corrected Sodium 138 mmol/L (136-145) 05/30/19 17:05 Potassium 4.2 mmol/L (3.5-5.1) 05/30/19 17:05 Chloride 104 mmol/L (98-107) 05/30/19 17:05 Carbon Dioxide 29.1 mmol/L (21-32) 05/30/19 17:05 BUN 7 mg/dL (7-18) 05/30/19 17:05 Creatinine 0.90 mg/dL (0.55-1.02) 05/30/19 17:05 Est GFR (MDRD) Af Amer > 60 (>60) 05/30/19 17:05 Est GFR (MDRD) Non-Af > 60 (>60) 05/30/19 17:05 Glucose 119 mg/dL (65-99) H 05/30/19 17:05 Calcium 8.9 mg/dL (8.5-10.1) 05/30/19 17:05 Corrected Calcium 9.5 mg/dL (8.5-10.1) 05/30/19 17:05 Total Bilirubin 0.40 mg/dL (0.2-1.0) 05/30/19 17:05 AST 67 Units/L (15-37) H 05/30/19 17:05 ALT 70 Units/L (12-78) 05/30/19 17:05 Alkaline Phosphatase 78 Units/L (46-116) 05/30/19 17:05 Total Protein 7.5 g/dL (6.4-8.2) 05/30/19 17:05 Albumin 3.3 g/dL (3.4-5.0) L 05/30/19 17:05 Globulin 4.2 g/dL (2.5-4.5) 05/30/19 17:05 Albumin/Globulin Ratio 0.8 Ratio (1.1-2.1) L 05/30/19 17:05 XRAY XRAY Interpreted by: Radiologist and Self (PERIHILAR INFILTRATE AND PULMONARY CONGESTION.) XRAY Findings: REPORT NOTED AND DISCUSSED WITH PATIENT. Opioid Opioid Risk Tool Age (Ray box if 16-45): No History of Preadolescent Sexual Abuse: No Total: 0 Total Score Risk Category: Low Risk Copyright: Jonathan MEJIA predicting aberrant behaviors Diagnosis Discharge Problem: Hypoxia Pneumonia Qualifiers: Pneumonia type: due to unspecified organism
[2019-05-30 17:15] LABS: BASOPHILS % (AUTO) 0.4 % (0.2-1.0); EOSINOPHILS # (AUTO) 0.2 x10^3/uL (0.0-0.2); EOSINOPHILS % (AUTO) 2.2 % (0.9-2.9); HEMATOCRIT 35.4 % (36.0-47.0); HEMOGLOBIN 11.6 g/dL (12.0-16.0); LYMPHOCYTES # (AUTO) 2.8 X10^3/uL (1.3-2.9); LYMPHOCYTES % (AUTO) 36.9 % (21.0-51.0); MEAN CORPUSCULAR HEMOGLOBIN 27.9 pg (27.0-34.0); MEAN CORPUSCULAR HGB CONC 32.7 g/dL (33.0-35.0); MEAN CORPUSCULAR VOLUME 85.4 fL (80.0-100.0); MEAN PLATELET VOLUME 8.4 fL (7.4-11.0); MONOCYTES # (AUTO) 0.7 x10^3/uL (0.3-0.8); MONOCYTES % (AUTO) 8.5 % (0.0-13.0); PLATELET COUNT 253 X10^3/uL (150.0-450.0); RED BLOOD COUNT 4.14 X10^6/uL (3.5-5.4); RED CELL DISTRIBUTION WIDTH 15.9 % (11.6-16.5); WHITE BLOOD COUNT 7.7 X10^3/uL (3.6-10.0)
[2019-05-30 17:30] LABS: ALANINE AMINOTRANSFERASE 70 Units/L (12-78); ALBUMIN 3.3 g/dL (3.4-5.0); ALKALINE PHOSPHATASE 78 Units/L (46-116); ASPARTATE AMINO TRANSFERASE 67 Units/L (15-37); BLOOD UREA NITROGEN 7 mg/dL (7-18); CALCIUM 8.9 mg/dL (8.5-10.1); CARBON DIOXIDE 29.1 mmol/L (21-32); CHLORIDE 104 mmol/L (98-107); COR CA(FOR HYPOALB) 9.5 mg/dL (8.5-10.1); COR NA(FOR HYPERGLY) 138 mmol/L (136-145); SODIUM 138 mmol/L (136-145); TOTAL PROTEIN 7.5 g/dL (6.4-8.2); eGFR NON BLACK RACES > 60 (>60)
[2019-05-30 18:59] LABS: ABG BASE EXCESS 4.8 mmol/L (-2.0-2.0); ABG HCO3 28.1 mmol/L (22-26)
[2019-05-30 19:00] LABS: ABG ALLEN TEST POS
[2019-05-30] MEDS ORDERED: CATAPRES TAB 0.1 MG ONE (19:12)
[2019-05-30] MEDS: CATAPRES TAB 0.1 MG PO ONE (19:15)
--- NOTE | 2019-05-30 19:56 | RAD ---
HISTORYShortness of breath.STUDYCHEST, 1 VIEWCOMPARISONJanuary 2019.FINDINGSThe trachea is midline. The cardiac silhouette is enlarged. There is mild central pulmonary vascular congestion. No significant interstitial edema is identified. An electronic device projects over the left hemithorax, obscuring detail. There may be an infiltrate in the left perihilar region. Previously noted area of consolidation in the right lung is not well demonstrated on the current exam. The bony thorax is unremarkable.IMPRESSION1. Cardiomegaly with mild central pulmonary vascular congestion.2. Possible infiltrate in the perihilar region on the left. Please note that the left lung base is partially obscured by electronic device, likely within the patient's pocket. A repeat radiograph may be helpful.Electronically signed by: RUBÉN PRADO (May 30, 2019 19:55:54)
[2019-05-30] MEDS ORDERED: NS 1/2 1000 ML IV 1,000 ML IV ONE (21:19)
[2019-05-30] MEDS ORDERED: LEVAQUIN PREMIX IV 750 MG 750 MG/150 ML BAG IV ONE (21:20)
[2019-05-30] MEDS: LEVAQUIN PREMIX IV 750 MG 750 MG/150 ML BAG IV SCH (21:25)
[2019-05-30] MEDS: NS 1/2 1000 ML IV 1,000 ML IV SCH (21:25)
[2019-05-30] MEDS ORDERED: NS 100 ML IV + SPIKE MINIBAG* 100 ML IV ONE (21:28)
[2019-05-30] MEDS ORDERED: FORTAZ or TAZICEF VIAL INJ ONE (21:28)
[2019-05-30] MEDS: FORTAZ or TAZICEF VIAL INJ 1 G in NS 100 ML IV + SPIKE MINIBAG* 100 ML IV SCH ×2 (21:33→21:52)
[2019-05-30] MEDS ORDERED: ROBITUSSIN DM ONE (21:57)
[2019-05-30] MEDS ORDERED: GLUCOPHAGE XR PO ONE (21:57)
[2019-05-30] MEDS: ROBITUSSIN DM PO SCH (22:01)
[2019-05-30] MEDS: GLUCOPHAGE XR PO SCH (22:01)
[2019-05-30] MEDS: TUSSIONEX PENNKINETIC SUSP PO PRN (22:02)
[2019-05-30] MEDS ORDERED: LASIX IVP SCH (23:00)
[2019-05-30 23:48] VITALS: BMI 52.7
[2019-05-31] MEDS: DUONEB 0.5 MG/3 MG (3 mL) NEB SCH ×5 (00:13→12:49)
[2019-05-31] MEDS: FORTAZ or TAZICEF VIAL INJ 1 G in NS 100 ML IV + SPIKE MINIBAG* 100 ML IV SCH ×2 (06:07→13:13)
[2019-05-31 06:19] LABS: BASOPHILS % (AUTO) 0.5 % (0.2-1.0); EOSINOPHILS # (AUTO) 0.1 x10^3/uL (0.0-0.2); EOSINOPHILS % (AUTO) 1.4 % (0.9-2.9); HEMOGLOBIN 11.6 g/dL (12.0-16.0); LYMPHOCYTES # (AUTO) 2.5 X10^3/uL (1.3-2.9); LYMPHOCYTES % (AUTO) 28.6 % (21.0-51.0); MEAN CORPUSCULAR HEMOGLOBIN 28.2 pg (27.0-34.0); MEAN CORPUSCULAR HGB CONC 33.1 g/dL (33.0-35.0); MEAN CORPUSCULAR VOLUME 85.2 fL (80.0-100.0); MEAN PLATELET VOLUME 8.6 fL (7.4-11.0); MONOCYTES # (AUTO) 0.8 x10^3/uL (0.3-0.8); MONOCYTES % (AUTO) 9.1 % (0.0-13.0); NEUTROPHILS # (AUTO) 5.3 x10^3/uL (2.2-4.8); NEUTROPHILS % (AUTO) 60.4 % (42.0-75.0); PLATELET COUNT 228 X10^3/uL (150.0-450.0); RED BLOOD COUNT 4.11 X10^6/uL (3.5-5.4); RED CELL DISTRIBUTION WIDTH 15.8 % (11.6-16.5); WHITE BLOOD COUNT 8.7 X10^3/uL (3.6-10.0)
[2019-05-31 06:31] LABS: ALANINE AMINOTRANSFERASE 68 Units/L (12-78); ALBUMIN 3.2 g/dL (3.4-5.0); ALKALINE PHOSPHATASE 73 Units/L (46-116); ASPARTATE AMINO TRANSFERASE 55 Units/L (15-37); BLOOD UREA NITROGEN 11 mg/dL (7-18); CALCIUM 8.8 mg/dL (8.5-10.1); CHLORIDE 103 mmol/L (98-107); COR CA(FOR HYPOALB) 9.4 mg/dL (8.5-10.1); COR NA(FOR HYPERGLY) 140 mmol/L (136-145); CREATININE 1.06 mg/dL (0.55-1.02); SODIUM 139 mmol/L (136-145); TOTAL PROTEIN 7.2 g/dL (6.4-8.2); eGFR NON BLACK RACES 59 (>60)
[2019-05-31] MEDS ORDERED: NORVASC TAB 5 MG PO SCH (09:00)
[2019-05-31] MEDS ORDERED: VSL#3 PO SCH (09:00)
[2019-05-31] MEDS ORDERED: COZAAR PO SCH (09:00)
[2019-05-31] MEDS ORDERED: RHINOCORT ALLERGY NASAL SPRAY ENOSTRIL SCH (09:00)
[2019-05-31] MEDS ORDERED: LASIX IVP SCH (09:00)
[2019-05-31] MEDS ORDERED: ACTOS PO SCH (09:00)
[2019-05-31] MEDS: TUSSIONEX PENNKINETIC SUSP PO PRN (09:09)
[2019-05-31] MEDS: GLUCOPHAGE XR PO SCH (09:10)
[2019-05-31] MEDS: ROBITUSSIN DM PO SCH ×2 (09:10→13:13)
[2019-05-31] MEDS: LEVAQUIN PREMIX IV 750 MG 750 MG/150 ML BAG IV SCH (09:11)
[2019-05-31] MEDS: NS 1/2 1000 ML IV 1,000 ML IV SCH (11:22)
[2019-05-31 11:59] LABS: BILIRUBIN,URINE NEGATIVE (NEGATIVE); BLOOD/HEMOGLOBIN,URINE 2+ (NEGATIVE); GLUCOSE, URINE NEGATIVE (NEGATIVE); KETONES,URINE NEGATIVE (NEGATIVE); LEUKOCYTE ESTERASE ,URINE NEGATIVE (NEGATIVE); NITRITES,URINE NEGATIVE (NEGATIVE); PROTEIN,URINE NEGATIVE (NEGATIVE); UROBILINOGEN,URINE NORMAL (NORMAL)
[2019-05-31 12:02] LABS: APPEARANCE,URINE CLEAR (CLEAR); BACTERIA,URINE NEGATIVE /HPF (NEGATIVE); COLOR,URINE PALE YELLOW (YELLOW); RBC,URINE NONE SEEN /HPF (0-3); SQUAMOUS EPITHELIAL CELL,UR NEGATIVE /HPF (NEGATIVE)
[2019-05-31 12:12] VITALS: BP 131/72
--- NOTE | 2019-05-31 15:15 | VAS ---
HISTORY:Bilateral leg painStudy: Venous DopplerComparison:NoneTECHNIQUE: Multiple diaz scale and color flow Doppler images of the deep venous system were obtained of the bilateral lower extremitiesFINDINGS:There is normal respiratory phasicity, compression and augmentation of the extremity veins without evidence of acute DVT .IMPRESSION:1. Negative for DVT.Electronically signed by: KIMBERLY CALVILLO (May 31, 2019 15:14:11)
== END 2019-05-31 15:10 | disposition home or self-care (01) ==
LOC: ER 16:28 → OBS 16:28
PROVIDERS: ADMIT Internal Medicine; ATTEND Obstetrics & Gynecology Obstetrics
DX: I10 Essential (primary) hypertension; M79.605 Pain in left leg; R09.02 Hypoxemia; Z79.899 Other long term (current) drug therapy; R06.02 Shortness of breath; J18.8 Other pneumonia, unspecified organism; M79.604 Pain in right leg; E11.65 Type 2 diabetes mellitus with hyperglycemia
CPT/HCPCS: 36415; 36600; 71010; 71045; 80053; 81001; 82803; 85025; 85378; 87040; 93970; 94640; 94669; 94760; 96365; 96374; 99284; A4222; G0378; J0713; J1940; J1956; J7050; J7620